=== PATIENT | male | born 1970 | race Caucasian/White ===

== ENCOUNTER 2020-05-28 15:39 | Inpatient (IN) | payer OTHER, SELFPAY ==
[2020-05-28] VITALS (31 sets, daily range): BP systolic 151–184; BP diastolic 76–90; PULSE 57–69; RESP 12–24; TEMP 36.3–36.4; O2SAT 99–100; BMI 26.6; BMI 26.5
--- NOTE | ~2020-05-28 | MR_ITS ---
EXAMINATION: MR foot RT wo con DATE: 05/29/2020 13:01 INDICATION: Right foot diabetic ulcer. TECHNIQUE: Magnetic resonance imaging (MRI) of the right foot was performed without intravenous contr ast. Sequences included sagittal T1-weighted FSE and STIR FSE, long-axis PD-weighted FS FSE and PD-we ighted FSE, and short-axis PD-weighted FS FSE and T1-weighted FSE. COMPARISON: Right foot radiographs 05/28/2020, 09/11/2016 FINDINGS: There is an ulcer plantar to segment metatarsophalangeal joint. There is bone marrow edema involving fourth proximal phalanx with sparing of the head, consistent with osteomyelitis. There is a n old healed fracture deformity of second proximal phalanx. There is mild increased T2-weighted signa l intensity and normal T1-weighted signal intensity in head of second metatarsal, likely reactive ost eitis. Lisfranc ligament is intact. The flexor and extensor tendons are normal. There is mild tenosyn ovitis of the second digit flexors. There are small effusions of first and second metatarsophalangeal joints. There is a fluid collection between and dorsal to the first and second metatarsophalangeal j oints measuring 1.9 x 1.2 x 1.7 cm. There is widespread fatty atrophy of the musculature of varying d egrees. There is widespread increased T2-weighted signal intensity in the musculature, consistent wit h subacute on chronic aeration. There is dorsal subcutaneous edema in the foot. IMPRESSION: 1. Osteomyelitis involving second proximal phalanx. 2. 1.9 x 1.2 x 1.7 cm fluid collection between and dorsal to the first and second metatarsophalangeal joints, consistent with abscess. 3. Mild tenosynovitis of the second digit flexors. 4. Small effusions of first and second metatarsophalangeal joints. Reviewed, dictated and finalized at location A. IMPRESSION: 1. Osteomyelitis involving second proximal phalanx. 2. 1.9 x 1.2 x 1.7 cm fluid collection between and dorsal to the first and seco nd metatarsophalangeal joints, consistent with abscess. 3. Mild tenosynovitis of the second digit flexors. 4. Small effusions of first and second metatarsophalangeal joints.
--- NOTE | ~2020-05-28 | US_ITS ---
EXAMINATION: US renal BI EXAM DATE: 05/29/2020 13:49 INDICATION: Chronic renal failure. TECHNIQUE: Multiple grayscale and Doppler images of the kidneys were obtained (by a technologist who performed the scan) and subsequently reviewed. There is no prior study for comparison. FINDINGS: Right kidney: There is normal contour and increased echogenicity. It measures 9.0 x 4.7 x 4.5 centim eters. There are no focal renal lesions identified. There is no hydronephrosis. Left kidney: There is normal contour and increased echogenicity. It measures 11.1 x 5.7 x 4.5 centim eters. There are no focal renal lesions identified. There is no hydronephrosis. Bladder unremarkable. Bilateral ureteral jets were confirmed. IMPRESSION: 1. Echogenic kidneys, medical renal disease. 2. No hydronephrosis. Reviewed, dictated and finalized at location A.
--- NOTE | ~2020-05-28 | XR_ITS ---
EXAMINATION: XR foot RT min 3V DATE: 05/28/2020 INDICATION: Right foot pain, diabetic foot ulcer at the plantar aspect of the foot TECHNIQUE: Dorsoplantar, lateral, and 2 oblique views of the right foot were obtained. COMPARISON: 09/11/2016 FINDINGS: There is soft tissue swelling near the distal metatarsals. There appears to be an ulceratio n at the plantar aspect of the foot near the metatarsophalangeal joints. No fracture is identified. B one alignment is normal. There is mild osteoarthritis of the foot. IMPRESSION: 1. Soft tissue swelling and likely plantar ulceration of the distal foot. No acute osseous findings. Reviewed, dictated and finalized at location A. IMPRESSION: 1. Soft tissue swelling and likely plantar ulceration of the distal foot. No ac carlos osseous findings.
[2020-05-28 16:30] LABS: Basophils Absolute Auto 0.1 K/mm3 (0.0-0.1); Basophils Percent Auto 0.3 % (0.2-1.2); Eosinophils Absolute Auto 0.3 K/mm3 (0-0.3); Eosinophils Percent Auto 1.6 % (0-4.4); Hematocrit 38.6 % (42.0-52.0); Hemoglobin 12.6 g/dL (14.0-18.0); Immature Granulocyte Absolute 0.08 K/mm3 (0.00-0.031); Immature Granulocyte Percent A 0.5 % (0-0.5); Lymphocytes Absolute Auto 1.03 K/mm3 (0.9-3.2); Lymphocytes Percent Auto 6.3 % (18.3-44.2); Mean Corpuscular HGB Conc 32.6 g/dl (32-36); Mean Corpuscular Hemoglobin 29.6 pg (26-34); Mean Corpuscular Volume 90.6 fl (80-100); Mean Platelet Volume 9.9 fl (7.4-10.4); Monocytes Absolute Auto 1.4 K/mm3 (0.1-0.6); Monocytes Percent Auto 8.8 % (2.6-8.5); Neutrophils Absolute Auto 13.6 K/mm3 (1.3-6.7); Neutrophils Percent Auto 82.5 % (45.5-73.1); Platelet Count Result 222 k/mm3 (150-375); Red Blood Count 4.26 M/mm3 (4.6-6.20); Red Cell Distribution Width 13.4 % (11.5-14.5); White Blood Count 16.4 K/mm3 (4.5-10.0)
[2020-05-28 16:40] LABS: Lactic Acid Reflex 0.7 mmol/L (0.7-2.1)
[2020-05-28 16:41] LABS: Anion Gap 7 mmol/L (8-16); Blood Urea Nitrogen 36 mg/dL (9-20); Calcium 8.3 mg/dL (8.4-10.2); Carbon Dioxide 18 mmol/L (22-30); Chloride 112 mmol/L (98-107); Estimated CRCL calculation 33 ml/min; Estimated Glomerular Filt Rate 23; Glucose 78 mg/dL (75-110); Potassium 5.4 mmol/L (3.4-5.0); Sodium 137 mmol/L (137-145)
--- NOTE | 2020-05-28 16:52 | ED.WOUNDLAC ---
HPI - Wound/Laceration General Chief Complaint: Wound/Laceration Stated Complaint: wound to foot Time Seen by Provider: 05/28/20 15:55 Source: patient Mode of arrival: ambulatory Limitations: no limitations History of Present Illness HPI narrative: Patient is a 50-year-old male complaining of a wound on his right foot, states that he has a chronic wound on that foot that is being followed by wound care, had it for years , but the past 2 days noticed some increased redness and swelling in the area. Patient denies any calf pain or tenderness. Patient denies any fever or chills. Patient denies any chest pain or shortness of breath. Related Data Home Medications Medication Instructions Recorded Confirmed acetaminophen 325 mg PO ONCE 05/28/20 albuterol mcg INHALATION 05/28/20 ascorbic acid (vitamin C) [Vitamin 500 mg PO BID 05/28/20 C] calcium carbonate [Tums E-X] 300 mg PO TID 05/28/20 cetirizine 10 mg PO DAILY 05/28/20 cholecalciferol (vitamin D3) 50 mcg PO DAILY 05/28/20 [Vitamin D3] citalopram 10 mg PO DAILY 05/28/20 docusate sodium 100 mg PO BID 05/28/20 famotidine 20 mg PO DAILY 05/28/20 fluticasone propionate 1 spray INTRANASAL Q12H 05/28/20 insulin glargine [Basaglar KwikPen 30 unit SUBCUT QAM 05/28/20 U-100 Insulin] insulin lispro [Humalog KwikPen 1 unit SUBCUT ONCE 05/28/20 Insulin] lactulose [Enulose] 20 g PO QID 05/28/20 [id number] [Creon] 1 cap PO TID 05/28/20 lisinopril 5 mg PO DAILY 05/28/20 melatonin 10 mg PO HS PRN 05/28/20 metoprolol tartrate 50 mg PO Q12H 05/28/20 multivitamin [Daily-Precious] 1 tablet PO DAILY 05/28/20 nitroglycerin [Nitrostat] 0.4 mg SUBLINGUAL Q5-15M PRN 05/28/20 polyethylene glycol 3350 [Miralax] 17 g PO DAILY 05/28/20 sodium chloride 1,000 mg PO DAILY 05/28/20 spironolactone 25 mg PO DAILY 05/28/20 thiamine HCl (vitamin B1) 100 mg PO DAILY 05/28/20 trazodone 100 mg PO HS PRN 05/28/20 Allergies Allergy/AdvReac Type Severity Reaction Status Date / Time No Known Allergies Allergy Verified 05/28/20 15:45 Review of Systems Review of Systems: All systems reviewed & are unremarkable except as noted in HPI and below Constitutional: Constitutional: Denies body ache(s), Denies chills, Denies excessive sweating, Denies fatigue, Denies fever(s), Denies headache(s), Denies lethargy, Denies malaise, Denies weakness and Denies weight loss Eyes: Eyes: Denies blurry vision, Denies change in vision and Denies loss of vision ENT: Denies dizziness, Denies ear discharge, Denies headache(s), Denies lip swelling, Denies epistaxis, Denies nasal congestion, Denies neck pain, Denies throat swelling and Denies tongue swelling Cardiovascular: Cardiovascular: Denies chest pain, Denies chest pain at rest, Denies chest pain with activity, Denies diaphoresis, Denies rapid heart rate, Denies edema, Denies irregular heart rhythm, Denies lightheadedness, Denies palpitations, Denies dyspnea and Denies dyspnea on exertion Respiratory: Respiratory: Denies chest congestion, Denies cough, Denies hemoptysis, Denies dyspnea and Denies dyspnea on exertion Gastrointestinal: Gastrointestinal: Denies abdominal pain, Denies melena, Denies hematochezia, Denies diarrhea, Denies nausea, Denies vomiting and Denies hematemesis Musculoskeletal: Musculoskeletal: Denies abnormal gait, Denies deformity, Denies joint swelling, Denies limited range of motion, Denies neck pain and Denies numbness Neurologic: Denies Abnormal speech present, Denies abnormal gait, Denies confusion, Denies dizziness, Denies headache(s), Denies focal weakness, Denies loss of vision, Denies numbness, Denies Other visual disturbances, Denies Sensory deficit (Neuro) and Denies weakness Psychiatric: Psychiatric: Denies confusion, Denies depression, Denies auditory hallucinations, Denies homicidal ideation and Denies suicidal ideation Endocrine: Endocrine: Denies cold intolerance, Denies excessive sweating, Denies fatigue, De
[2020-05-28] MEDS: LACTATED RINGERS 1,000 ML 999 ML IV CONT (17:10)
--- NOTE | 2020-05-28 21:01 | ADMGEN ---
This patient, Ravi Vásquez, was admitted to [facility] Surg Room 309-01. Patient/family oriented to hospital policies and general routines including ID bracelet, bed and alarms, visiting hours, pain management, procedures, bathroom and other care routines, personal items, smoking policy, room service/diet, and visiting hours. Information on how to activate the Rapid Response Team has been discussed. Patient/Family are encouraged to report perceived risks to care and to ask questions if they do not understand what they are told or what they should do.
--- NOTE | 2020-05-28 21:58 | PM.IMHP ---
H&P: HPI History of Present Illness Date/Time: 05/28/20 21:58 this is a 50-year-old male patient who is from [facility]. The patient has a history of insulin-dependent diabetes. The patient stated that his blood sugars are typically anywhere between 1-300. The patient does not know when his last A1c was. The patient stated that he has had a chronic wound ulcer to that right foot on and off for years. The patient states that he sees a senior capital markets specialist at the senior care on Mondays and they have debrided in the past. However he recently noticed that he has a strong odor from that foot. He has severe neuropathy due to the diabetes as well. And swelling. He is having some discomfort to the right foot. He has a dressing was some au colored drainage. ER started Zosyn and given a L of lactated Ringer's. Patient has leukocytosis with a white count of 16.4. If his potassium was noted to be 5.4 creatinine 2.9. The patient is afebrile at this time. The patient is being admitted to inpatient services on the date of service of 05/28/2020. Chief Complaint: Right foot sore Review of Systems Review of Systems: All systems reviewed & are unremarkable except as noted in HPI and below Constitutional: Constitutional: Reports as per HPI and Reports no additional constitutional complaints Eyes: Eyes: Reports as per HPI and Reports no additional eye complaints ENT: Reports system reviewed and no additional complaints, except as documented and Reports Normal hearing present Cardiovascular: Cardiovascular: Reports no additional cardiovascular complaints Respiratory: Respiratory: Reports no additional respiratory complaints and Reports no additional respiratory complaints Gastrointestinal: Gastrointestinal: Reports as per HPI and Reports no additional gastrointestinal complaints Musculoskeletal: Musculoskeletal: Reports no additional musculoskeletal complaints Integumentary/Breasts: Skin/Breast: Reports system reviewed and no additional complaints, except as docu and Reports as per HPI Neurologic: Reports system reviewed and no additional complaints, except as documented, Reports as per HPI and Reports Normal hearing present Psychiatric: Psychiatric: Reports no additional psychiatric complaints and Reports as per HPI Endocrine: Endocrine: Reports no additional endocrine complaints Hematologic/Lymphatic: Hematologic/Lymphatic: Reports no additional hematologic/lymphatic complaints Allergic/Immunologic: Allergic/Immunologic: Reports no additional allergic/immunologic complaints [facility] Past Medical History Medical History (Updated 05/28/20 @ 22:06 by Mercedes Richard NP) Chronic diabetic ulcer of right foot determined by examination Chronic pancreatitis Depression with anxiety Diabetic neuropathy Environmental allergies History of alcoholism Hypertension Insulin dependent diabetes mellitus S/P ORIF (open reduction internal fixation) fracture Left elbow Surgical History Surgical History (Updated 05/28/20 @ 22:06 by Mercedes Richard NP) History of surgery on arm Left elbow Family History Family History (Updated 05/28/20 @ 22:07 by Mercedes Richard NP) Mother Breast cancer Father Cancer Social History Social History (Updated 05/28/20 @ 22:08 by Mercedes Richard NP) Social History: The patient tells me that he used to drink heavily and has a history of alcoholism. The patient is single does not have any children. He does not have a durable power commercial attorney for healthcare. The patient is a full code. The patient resides at [facility]. The patient is disabled. The patient continues to smoke a half pack a cigarettes a day. Patient stated he smoked marijuana as a teenager but has not smoked since. He does not use any illicit drugs. The patient has no children. Smoking packs per day: 0.5 Smoking cigarettes per day: 10.0 Smoking status: Current every day smoker
[2020-05-28 22:44] LABS: Glucose Point of Care 69 (65-105)
[2020-05-28] MEDS: hydrALAZINE HCL 20 MG/ML VIAL 10 MG IV PUSH (23:10)
[2020-05-28 23:31] LABS: Anion Gap 6 mmol/L (8-16); Blood Urea Nitrogen 35 mg/dL (9-20); Calcium 8.3 mg/dL (8.4-10.2); Carbon Dioxide 19 mmol/L (22-30); Chloride 110 mmol/L (98-107); Estimated CRCL calculation 32 ml/min; Estimated Glomerular Filt Rate 22; Glucose 138 mg/dL (75-110); Sodium 135 mmol/L (137-145)
[2020-05-29 06:00] VITALS: BP 175/85; PULSE 84; RESP 18; TEMP 37.2; O2SAT 97
[2020-05-29] MEDS: hydrALAZINE HCL 20 MG/ML VIAL 10 MG IV PUSH (06:22)
[2020-05-29 06:30] LABS: Basophils Absolute Auto 0.1 K/mm3 (0.0-0.1); Basophils Percent Auto 0.3 % (0.2-1.2); Eosinophils Absolute Auto 0.3 K/mm3 (0-0.3); Eosinophils Percent Auto 1.9 % (0-4.4); Hematocrit 35.2 % (42.0-52.0); Hemoglobin 11.6 g/dL (14.0-18.0); Immature Granulocyte Absolute 0.08 K/mm3 (0.00-0.031); Immature Granulocyte Percent A 0.5 % (0-0.5); Lymphocytes Absolute Auto 1.31 K/mm3 (0.9-3.2); Lymphocytes Percent Auto 8.6 % (18.3-44.2); Mean Corpuscular Hemoglobin 29.2 pg (26-34); Mean Corpuscular Volume 88.7 fl (80-100); Mean Platelet Volume 10.5 fl (7.4-10.4); Monocytes Absolute Auto 1.3 K/mm3 (0.1-0.6); Monocytes Percent Auto 8.6 % (2.6-8.5); Neutrophils Absolute Auto 12.2 K/mm3 (1.3-6.7); Neutrophils Percent Auto 80.1 % (45.5-73.1); Platelet Count Result 214 k/mm3 (150-375); Red Blood Count 3.97 M/mm3 (4.6-6.20); Red Cell Distribution Width 13.1 % (11.5-14.5); White Blood Count 15.3 K/mm3 (4.5-10.0)
[2020-05-29 06:45] LABS: Lactate Dehydrogenase 267 U/L (313-618); Magnesium 1.3 mg/dL (1.6-2.3)
[2020-05-29 06:48] LABS: Lipase < 10 U/L (23-300)
[2020-05-29 07:54] LABS: Glucose Point of Care 169 (65-105)
[2020-05-29] MEDS: LACTULOSE 20 GM/30 ML UDC PO ×4 (08:12→21:03)
[2020-05-29] MEDS: LIPASE/AMYLASE/PROTEASE 12,000 UNITS CAP 3 CAP PO ×3 (08:12→17:04)
[2020-05-29 08:13] VITALS: PULSE 86
[2020-05-29] MEDS: CHOLECALCIFEROL 1,000 UNITS TABLET 2000 UNITS PO (08:13)
[2020-05-29] MEDS: ASCORBIC ACID 500 MG TABLET PO ×2 (08:13→17:05)
[2020-05-29] MEDS: METOPROLOL TARTRATE 50 MG TAB PO ×2 (08:13→21:03)
[2020-05-29] MEDS: FAMOTIDINE 20 MG TABLET PO (08:15)
[2020-05-29] MEDS: LORATADINE 10 MG TABLET PO (08:15)
[2020-05-29] MEDS: SPIRONOLACTONE 25 MG TABLET PO (08:15)
[2020-05-29] MEDS: MULTIVITAMINS THERAPEUTIC TAB (*BKC) 1 TABLET PO (08:15)
[2020-05-29] MEDS: SODIUM CHLORIDE 1 GM TABLET PO (08:15)
[2020-05-29] MEDS: lisinopriL 5 MG TABLET PO (08:15)
[2020-05-29] MEDS: THIAMINE HCL 100 MG TABLET PO (08:15)
[2020-05-29] MEDS: INSULIN GLARGINE (*BKC) 100 UNITS/ML 30 UNITS SUB-Q (08:46)
[2020-05-29] MEDS: ACETAMINOPHEN 325 MG TABLET 650 MG PO ×2 (08:47→21:09)
--- NOTE | 2020-05-29 09:00 | PM.CNOR ---
Assessment and Plan Assessment and plan (1) Diabetic infection of right foot: Code(s): E11.628 - Type 2 diabetes mellitus with other skin complications; L08.9 - Local infection of the skin and subcutaneous tissue, unspecified Status: Acute Assessment and Plan: Orthopedic consult requested for this 50-year-old male with a history of a right plantar diabetic foot ulcer with recent worsening. Per patient, the ulcer is been present for approximately 2 years and he has been followed by a supervisor sewer maintenance at [facility]. He has resided at [facility] for the last 8 years per patient report. He does have chronic diabetes and neuropathy. He does not wear custom orthotics or depth shoes. History, exam and radiographs reviewed with the patient today. Radiographs of the right foot reveal no evidence of acute osteomyelitis. Ulcer on the plantar aspect of the 2nd MTP joint with 2 cm in depth. Inability to probe to bone. Concern for tracking to the dorsal foot through the 1st interspace with notable redness, warmth and swelling on the dorsal aspect of the forefoot of the right foot. Foul odor noted as well as purulent drainage. Recommend MRI of the right foot at this time for further evaluation of suspected tracking. IV antibiotics. Close glycemic control. Elevate the right lower extremity. Protected weight-bearing on the heel. Postop shoe in the interim. Dry gauze dressing in place at this time. We will obtain Wound Care Nurse consult pending MRI results and decision for conservative vs. operative treatment. (2) Diabetic neuropathy: Qualifiers: Diabetes mellitus complication detail: with other neurological complication Diabetes mellitus type: type 2 Qualified Code(s): E11.49 - Type 2 diabetes mellitus with other diabetic neurological complication Code(s): E11.40 - Type 2 diabetes mellitus with diabetic neuropathy, unspecified Status: Chronic Assessment and Plan: This document was completed by using [employer] Fluency Direct speech recognition software, therefore electron tube assembler variances may occur. Despite proofreading, typographical errors may also occur. History of Present Illness HPI Consult date: 05/29/20 Requesting physician: Mercedes Richard NP Consult reason: other (Right DFU ) Chief complaint: Diabetic foot ulcer infection Narrative: 48-year-old male admitted from [facility] due to increasing redness, warmth and swelling to the right foot. Patient has a chronic right diabetic foot ulcer on the plantar aspect of the right foot over the 2nd metatarsal head. He has been seeing a supervisor sewer maintenance at [facility] understand he rehab once or twice a month. He has had intermittent debridement of that foot as well. Patient reports situations in the past where he has been nonweightbearing to the right lower extremity and his wound heals and then reoccurs as soon as he begins to bear weight. He does not wear custom orthotics or depth shoes. The patient is diabetic and has chronic neuropathy to bilateral feet. He noticed an increase of redness, warmth and swelling as well as a foul odor which prompted his arrival to the emergency room for further evaluation. He denies recent fever, chills, night sweats, nausea, vomiting or diarrhea. He reports well-maintained blood glucose levels. Orthopedic consult requested by the hospitalist service. Review of Systems Constitutional: Constitutional: Reports no additional constitutional complaints, Denies excessive sweating, Denies fever(s) and Denies weight gain Eyes: Eyes: Reports no additional eye complaints and Denies change in vision ENT: Reports system reviewed and no additional complaints, except as documented and Reports Normal hearing present Cardiovascular: Cardiovascular: Denies chest pain, Denies diaphoresis, Denies leg ulcers and Denies dyspnea on exertion Respiratory:
[2020-05-29 09:30] VITALS: O2SAT 97
[2020-05-29] MEDS: CALCIUM CARBONATE (TUMS) 500 MG (200 MG ELEMENTAL) 300 MG PO ×2 (09:59→16:57)
[2020-05-29] MEDS: CITALOPRAM HYDROBROMIDE 10 MG TABLET PO (09:59)
[2020-05-29] MEDS: DOCUSATE SODIUM 100 MG CAPSULE PO ×2 (10:00→17:10)
--- NOTE | 2020-05-29 10:50 | PM.IMPN ---
Progress Note: A&P Assessment and Plan (1) Diabetic infection of right foot: Code(s): E11.628 - Type 2 diabetes mellitus with other skin complications; L08.9 - Local infection of the skin and subcutaneous tissue, unspecified Status: Acute Assessment and Plan: He states he gets wound services in his [facility]. The x-ray of the foot shows soft tissue swelling and likely plantar ulceration in the distal foot. Blood and wound cultures have been pending. pt is on iv primaxin and iv vancomycin. pt seen by orthopedic team. Mri foot recommended, wound team consulted. (2) Insulin dependent diabetes mellitus: Status: Chronic Assessment and Plan: Accu-Cheks AC and HS with sliding scale insulin. Check A1c. (3) Depression with anxiety: Code(s): F41.8 - Other specified anxiety disorders Status: Chronic Assessment and Plan: Continue with Celexa. (4) Hypertension: Code(s): I10 - Essential (primary) hypertension Status: Chronic Assessment and Plan: restart bp medications (5) Chronic pancreatitis: Code(s): K86.1 - Other chronic pancreatitis Status: Chronic Assessment and Plan: Patient is on Creon will continue with that. (6) Diabetic neuropathy: Qualifiers: Diabetes mellitus type: type 2 Diabetes mellitus complication detail: with other neurological complication Qualified Code(s): E11.49 - Type 2 diabetes mellitus with other diabetic neurological complication Code(s): E11.40 - Type 2 diabetes mellitus with diabetic neuropathy, unspecified Status: Chronic Assessment and Plan: Continue with home medications. (7) Acute hyperkalemia: Code(s): E87.5 - Hyperkalemia Status: Resolved Assessment and Plan: continue to monitor Subjective Date/time seen: 05/29/20 10:50 Interval history: 50-year-old male patient who is from [facility]. The patient has a history of insulin-dependent diabetes. Pt is here for DM R foot infection has seen orthopedics and is on iv primaxin and vancomycin Review of Systems Review of Systems: All systems reviewed & are unremarkable except as noted in HPI and below Exam Narrative: Exam Narrative: Younger man Chest: Chest palpation & inspection: normal inspection of the chest Resp: Effort & Inspection: normal respiratory effort Auscultation: clear to auscultation bilaterally Percussion: percussion normal Cardio: Palpation: normal PMI Rate: regular rate Rhythm: regular rhythm Heart sounds: S1 normal heart sound present and S2 normal heart sound present Peripheral pulses: Peripheral pulses 2+ throughout GI: Inspection: normal to inspection Auscultation: normal bowel sounds Extrem: General: normal to inspection Right upper extremity: normal to inspection Left upper extremity: normal to inspection Left lower extremity: normal to inspection Other: Dressing to R foot Psych: Appearance: grossly normal Mental Status: mental status grossly normal Speech and movement: Normal speech and movement present Affect: normal affect Attitude: cooperative Thought process: Normal thought process present Insight: Good insight present (Psych) Judgement: Good judgement present (Psych) Objective Data Vital Signs Vital Signs: Vital Signs - 24 hr 05/28/20 15:38 05/28/20 15:47 05/28/20 16:01 Temperature 36.4 C Pulse Rate 69 68 65 Respiratory Rate 17 15 17 Blood Pressure 182/87 H 162/81 H Pulse Oximetry 100 100 99 05/28/20 16:02 05/28/20 16:15 05/28/20 16:16 Temperature Pulse Rate 66 63 64 Respiratory Rate 20 19 19 Blood Pressure 157/78 H Pulse Oximetry 99 99 100 05/28/20 16:28 05/28/20 16:30 05/28/20 16:31 Temperature Pulse Rate 62 62 62 Respiratory Rate 17 19 19 Blood Pressure 157/78 H 151/76 H Pulse Oximetry 100 99 100 05/28/20 16:45 05/28/20 16:46 05/28/20 17:00 Temperature Pulse Rate 64 64 61 Respiratory Rate 12
--- NOTE | 2020-05-29 12:21 | PC.NURSE ---
Patient went down for MRI of RT Foot
--- NOTE | 2020-05-29 13:23 | PC.NURSE ---
Return from MRI at 1320
[2020-05-29] MEDS: INSULIN ASPART (*BKC) 100 UNITS/ML SUB-Q ×2 (13:41→17:48)
[2020-05-29 13:43] LABS: Glucose Point of Care 275 (65-105)
[2020-05-29 14:00] VITALS: BP 181/91; PULSE 67; RESP 18; TEMP 36.4; O2SAT 100
[2020-05-29 17:33] LABS: Glucose Point of Care 333 (65-105)
[2020-05-29 21:03] VITALS: PULSE 75
[2020-05-29] MEDS: MELATONIN 5 MG TABLET 10 MG PO (21:10)
[2020-05-29 22:00] VITALS: BP 187/94; PULSE 75; RESP 18; TEMP 37.3; O2SAT 97
[2020-05-29] MEDS: INSULIN ASPART (*BKC) 100 UNITS/ML 8 UNITS SUB-Q (23:04)
[2020-05-30] VITALS (17 sets, daily range): BP systolic 102–184; BP diastolic 56–87; PULSE 60–88; RESP 14–20; TEMP 36.2–37.2; O2SAT 97–100
[2020-05-30] MEDS: hydrALAZINE HCL 20 MG/ML VIAL 10 MG IV PUSH ×2 (02:46→13:11)
[2020-05-30 04:37] LABS: Glucose Point of Care 308 (65-105)
[2020-05-30 05:26] LABS: Glucose Point of Care 166 (65-105)
[2020-05-30] MEDS: ACETAMINOPHEN 325 MG TABLET 650 MG PO ×3 (06:03→20:15)
[2020-05-30] MEDS: LABETALOL HCL INJ 100 MG/20 ML VIAL 10 MG IV PUSH (06:03)
--- NOTE | 2020-05-30 06:38 | PC.NURSE ---
PAULETTE Richard notified that the patient is having consistent high bp with the morning one being greater then 160 and unable to receive the hydralazine yet. Order Labetalol 10mg IV once.
[2020-05-30 08:20] LABS: Anion Gap 10 mmol/L (8-16); Blood Urea Nitrogen 36 mg/dL (9-20); Calcium 8.7 mg/dL (8.4-10.2); Carbon Dioxide 13 mmol/L (22-30); Chloride 110 mmol/L (98-107); Estimated CRCL calculation 32 ml/min; Estimated Glomerular Filt Rate 22; Glucose 222 mg/dL (75-110); Potassium 5.2 mmol/L (3.4-5.0); Sodium 133 mmol/L (137-145)
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
--- NOTE | 2020-05-30 08:23 | WPDHPUPDATE1 ---
History and Physical Update Update Date/Time: 05/30/20 08:23 History and Physical has been reviewed, including an updated exam of the patient. There are NO changes in the patient's condition. Risks, benefits, and alternatives have been discussed and questions answered. Patient agrees to proceed with procedure.
[2020-05-30 08:44] LABS: Basophils Absolute Auto 0.1 K/mm3 (0.0-0.1); Basophils Percent Auto 0.4 % (0.2-1.2); Eosinophils Absolute Auto 0.5 K/mm3 (0-0.3); Eosinophils Percent Auto 3.7 % (0-4.4); Hematocrit 37.4 % (42.0-52.0); Hemoglobin 12.6 g/dL (14.0-18.0); Immature Granulocyte Absolute 0.07 K/mm3 (0.00-0.031); Immature Granulocyte Percent A 0.5 % (0-0.5); Lymphocytes Absolute Auto 1.13 K/mm3 (0.9-3.2); Lymphocytes Percent Auto 8.3 % (18.3-44.2); Mean Corpuscular HGB Conc 33.7 g/dl (32-36); Mean Corpuscular Hemoglobin 30.1 pg (26-34); Mean Corpuscular Volume 89.5 fl (80-100); Mean Platelet Volume 10.4 fl (7.4-10.4); Monocytes Percent Auto 7.4 % (2.6-8.5); Neutrophils Absolute Auto 10.9 K/mm3 (1.3-6.7); Neutrophils Percent Auto 79.7 % (45.5-73.1); Platelet Count Result 237 k/mm3 (150-375); Red Blood Count 4.18 M/mm3 (4.6-6.20); Red Cell Distribution Width 13.4 % (11.5-14.5); White Blood Count 13.7 K/mm3 (4.5-10.0)
[2020-05-30 09:00] LABS: Magnesium 1.5 mg/dL (1.6-2.3)
[2020-05-30 09:00] LABS: Glucose Point of Care 211 (65-105)
[2020-05-30] MEDS: LIPASE/AMYLASE/PROTEASE 12,000 UNITS CAP 3 CAP PO ×2 (09:17→17:39)
[2020-05-30] MEDS: FAMOTIDINE 20 MG TABLET PO (09:17)
[2020-05-30] MEDS: MAGNESIUM SULFATE 3GM/D5W100ML 3 GM/100 ML BAG IVPB (09:17)
[2020-05-30] MEDS: SODIUM CHLORIDE 1 GM TABLET PO (09:17)
[2020-05-30] MEDS: LORATADINE 10 MG TABLET PO (09:18)
[2020-05-30] MEDS: CHOLECALCIFEROL 1,000 UNITS TABLET 2000 UNITS PO (09:18)
[2020-05-30] MEDS: SPIRONOLACTONE 25 MG TABLET PO (09:18)
[2020-05-30] MEDS: ASCORBIC ACID 500 MG TABLET PO ×2 (09:18→17:39)
[2020-05-30] MEDS: lisinopriL 5 MG TABLET PO (09:18)
[2020-05-30] MEDS: METOPROLOL TARTRATE 50 MG TAB PO ×2 (09:18→20:15)
[2020-05-30] MEDS: CITALOPRAM HYDROBROMIDE 10 MG TABLET PO (09:18)
[2020-05-30] MEDS: THIAMINE HCL 100 MG TABLET PO (09:18)
[2020-05-30] MEDS: LACTULOSE 20 GM/30 ML UDC PO ×3 (09:21→20:15)
[2020-05-30] MEDS: MULTIVITAMINS THERAPEUTIC TAB (*BKC) 1 TABLET PO (09:21)
[2020-05-30] MEDS: CALCIUM CARBONATE (TUMS) 500 MG (200 MG ELEMENTAL) 300 MG PO ×2 (09:23→17:37)
[2020-05-30 12:15] LABS: Glucose Point of Care 268 (65-105)
[2020-05-30] MEDS: LACTATED RINGERS 1,000 ML 30 ML IV CONT (14:10)
--- NOTE | 2020-05-30 14:34 | PC.NURSE ---
Patient down to pre-op at 1400.
--- NOTE | 2020-05-30 14:51 | WPDANESEPPF ---
Anes - Initial Pre Proc Eval Procedure: Operation Date: 05/30/20 15:00 Proposed Procedures p Incision and Drainage Right Diabetic Foot Ulcer, Excision Osteomylitis - Ishmael Marie MD Date/Time: 05/30/20 14:51 Surgeon: Paige Camp PA-C Pre Op Diagnosis: Diabetic foot ulcer infection Patient Data Age: 50 Gender: M Height: 6 ft 3 in Weight: 96.4 kg Last Vital Signs Temp 36.2 C L 05/30/20 06:00 Pulse 88 05/30/20 09:18 Resp 20 05/30/20 08:00 BP 169/67 H 05/30/20 06:00 Pulse Ox 97 05/30/20 08:00 Allergies Allergy/AdvReac Type Severity Reaction Status Date / Time No Known Allergies Allergy Verified 05/28/20 15:45 Home Medications Medication Instructions Recorded Confirmed Type acetaminophen 325 mg PO ONCE 05/28/20 05/28/20 History ascorbic acid (vitamin C) [Vitamin 500 mg PO BID 05/28/20 05/28/20 History C] calcium carbonate [Tums E-X] 300 mg PO TID 05/28/20 05/28/20 History cetirizine 10 mg PO DAILY 05/28/20 05/28/20 History cholecalciferol (vitamin D3) 50 mcg PO DAILY 05/28/20 05/28/20 History [Vitamin D3] citalopram 10 mg PO DAILY 05/28/20 05/28/20 History docusate sodium 100 mg PO BID 05/28/20 05/28/20 History famotidine 20 mg PO DAILY 05/28/20 05/28/20 History fluticasone propionate 1 spray INTRANASAL Q12H PRN 05/28/20 05/28/20 History insulin glargine [Basaglar KwikPen 30 unit SUBCUT QAM 05/28/20 05/28/20 History U-100 Insulin] insulin lispro [Humalog KwikPen See Rx Instructions .ROUTE .COMPLEX 05/28/20 05/28/20 History Insulin] lactulose [Enulose] 20 g PO QID 05/28/20 05/28/20 History wzessx-rxcqimpi-wzmbiue [Creon] 1 cap PO TID 05/28/20 05/28/20 History lisinopril 5 mg PO DAILY 05/28/20 05/28/20 History melatonin 10 mg PO HS PRN 05/28/20 05/28/20 History metoprolol tartrate 50 mg PO Q12H 05/28/20 05/28/20 History multivitamin [Daily-Precious] 1 tablet PO DAILY 05/28/20 05/28/20 History nitroglycerin [Nitrostat] 0.4 mg SUBLINGUAL Q5-15M PRN 05/28/20 05/28/20 History polyethylene glycol 3350 [Miralax] 17 g PO PRN 05/28/20 05/28/20 History sodium chloride 1,000 mg PO DAILY 05/28/20 05/28/20 History spironolactone 25 mg PO DAILY 05/28/20 05/28/20 History thiamine HCl (vitamin B1) 100 mg PO DAILY 05/28/20 05/28/20 History trazodone 100 mg PO HS PRN 05/28/20 05/28/20 History Laboratory Tests 05/29/20 05/29/20 05/30/20 17:23 21:01 05:14 WBC RBC Hgb Hct MCV MCH MCHC RDW Plt Count MPV Immature Gran % (Auto) Neut % (Auto) Lymph % (Auto) [place] % (Auto) Eos % (Auto) Baso % (Auto) Lymph # (Auto) [place] # (Auto) Eos # (Auto) Baso # (Auto) Abs Immat Gran (auto) Absolute Neuts (auto) Absolute Nucleated RBC Nucleated RBC % Sodium Potassium Chloride Carbon Dioxide Anion Gap BUN Creatinine Estim Creat Clear Calc Estimated GFR Glucose POC Capillary Glucose 333 mg/dl H mg/dl 308 mg/dl H mg/dl 166 mg/dl H mg/dl (65-105) (65-105) (65-105) Calcium Magnesium 05/30/20 05/30/20 05/30/20 07:54 07:54 07:54 WBC 13.7 K/mm3 H K/mm3 (4.5-10.0) RBC 4.18 M/mm3 L M/mm3 (4.6-6.20) Hgb 12.6 g/dL L g/dL (14.0-18.0) Hct 37.4 % L % (42.0-52.0) MCV 89.5 fl fl (80-100) MCH 30.1 pg pg (26-34) MCHC 33.7 g/dl g/dl (32-36) RDW 13.4 % % (11.5-14.5) Plt Count 237 k/mm3 k/mm3 (150-375) MPV 10.4 fl fl (7.4-10.4) Immature Gran % (Auto) 0.5 % % (0-0.5) Neut % (Auto) 79.7 % H % (45.5-73.1) Lymph % (Auto) 8.3 % L
--- NOTE | 2020-05-30 14:58 | PM.IMPN ---
Progress Note: A&P Assessment and Plan (1) Osteomyelitis: Code(s): M86.9 - Osteomyelitis, unspecified Status: Acute Assessment and Plan: Patient lives at shelter for the last 8 years and gets his wound services there. He states on 05/26/20 the patient started having some increased redness, swelling, pain, foul odor inside to come to emergency room for further evaluation due in a non improving symptoms. Patient MRI of his foot which showed Osteomyelitis involving second proximal phalanx. 1.9 x 1.2 x 1.7 cm fluid collection between and dorsal to the first and second metatarsophalangeal joints, consistent with abscess. Mild tenosynovitis of the second digit flexors. Small effusions of first and second metatarsophalangeal joints. Patient is being taken to the OR for a debridement by orthopedic surgery today Wound culture is growing group B strep, but the patient does have a history of MRSA infection about 1 year ago he states Will continue treatment with IV Primaxin and vancomycin Recommendations per Orthopedic team greatly appreciated May need to consider infectious disease consultation for antibiotic recommendations closer to discharge Continue monitoring (2) Acute kidney injury superimposed on chronic kidney disease: Code(s): N17.9 - Acute kidney failure, unspecified; N18.9 - Chronic kidney disease, unspecified Status: Acute Assessment and Plan: Patient's baseline creatinine per his shelter is 2.3. He does see Dr. Simms bpm architect as an outpatient. Creatinine on arrival was 2.9, and today it was 3. This could be his baseline, if becomes worse then will consider getting Nephrology involved. Renal ultrasound Echogenic kidneys, medical renal disease. No hydronephrosis. Continue monitoring. (3) Diabetic infection of right foot: Code(s): E11.628 - Type 2 diabetes mellitus with other skin complications; L08.9 - Local infection of the skin and subcutaneous tissue, unspecified Status: Acute Assessment and Plan: See above (4) Insulin dependent diabetes mellitus: Status: Chronic Assessment and Plan: Hemoglobin A1c is. Well controlled. Will continue his regimen. Accu-Cheks AC and HS with sliding scale insulin. Hypoglycemic protocol in place (5) Depression with anxiety: Code(s): F41.8 - Other specified anxiety disorders Status: Chronic Assessment and Plan: Continue with Celexa. (6) Hypertension: Code(s): I10 - Essential (primary) hypertension Status: Chronic Assessment and Plan: Blood pressure this morning was elevated 169/67. Continue home medications and p.r.n. hydralazine. (7) Chronic pancreatitis: Code(s): K86.1 - Other chronic pancreatitis Status: Chronic Assessment and Plan: Patient is on Creon will continue with that. (8) Diabetic neuropathy: Qualifiers: Diabetes mellitus complication detail: with other neurological complication Diabetes mellitus type: type 2 Qualified Code(s): E11.49 - Type 2 diabetes mellitus with other diabetic neurological complication Code(s): E11.40 - Type 2 diabetes mellitus with diabetic neuropathy, unspecified Status: Chronic Assessment and Plan: Continue with home medications. (9) Acute hyperkalemia: Code(s): E87.5 - Hyperkalemia Status: Resolved Assessment and Plan: Potassium is elevated most likely due to his ZITA. 5.2 today, will continue monitoring. (10) Hypomagnesemia:
[2020-05-30 16:20] LABS: Glucose Point of Care 244 (65-105)
[2020-05-30] MEDS: INSULIN HUMAN REGULAR (*BKC) 100 UNITS/ML 6 UNITS SUB-Q (16:32)
--- NOTE | 2020-05-30 16:55 | PM.PROC ---
Procedure Note - Detailed Date of procedure: 05/30/20 Pre-op diagnosis: Diabetic foot ulcer infection Post-op diagnosis: same Procedure performed: excisional debridement right diabetic foot infection, debridement abscess, Excision exostosis Description of procedure: Indications: Patient is a 50-year-old gentleman with diabetes and peripheral neuropathy who was admitted with a right diabetic foot infection and plantar foot ulcer. MRI demonstrates abscess in the 1st webspace. He presents for operative treatment. What was done: Patient identified in the preoperative holding. Informed consent given. Operative extremity marked. Patient received intravenous antibiotics. Patient brought to the operating room where underwent general anesthetic by anesthesia team. Positioned supine on operating room table. Time-out performed confirming the patient, site of the surgery and the plan. Right foot prepped draped usual sterile surgical fashion using a Betadine prep solution. Ankle and leg exsanguinated and calf tourniquet inflated to 225 mmHg. Hip blade knife used to excise the thick skin and callus from the plantar aspect of the foot exposing a 1.5 x 1 cm ulcer which communicated with the 2nd metatarsal. Skin, subcutaneous tissue and muscle were debrided. Infected material was excised and passed off. Wound thoroughly irrigated and closed with 2 0 Prolene interrupted suture. Longitudinal incision made in the 1st webspace on the dorsum of the foot with a 15 blade knife. Approximately 2 cm abscess encountered deep to the fascia with purulent fluid. Fifteen blade knife used to excise subcutaneous tissue and muscle from the abscess that was infected. Dorsomedial capsulotomy performed of the 2nd metatarsophalangeal joint. The proximal phalanx and the metatarsal head or inspected and probed and no evidence of osteomyelitis. There was no evidence of infection in the joint. Retractors were placed and a rongeur was used to remove the plantar condyle from the 2nd metatarsal head. Wound thoroughly irrigated and skin loosely approximated with 2 0 Prolene interrupted suture. Sterile dressing applied. The patient was then woken from anesthesia, extubated and taken to the recovery room in stable condition. All sponge, needle, instrument counts were correct at the end of the case. Implants: none Anesthesia: GLMA Surgeon: Ishmael Marie MD Test Baker: 1st expanded duty dental assistant Estimated blood loss (mL): 2 Tourniquet time (min): 28 Drains: No Packing: No Pathology: none sent Complications: None Condition: stable Disposition: PACU Findings: subfascial abscess 1st webspace right foot with communication to the plantar ulcer. No evidence of septic arthritis, no evidence of osteomyelitis. 1.5 x 1 cm ulcer plantar foot
--- NOTE | 2020-05-30 17:30 | PC.NURSE ---
Patient returned to floor from post-op at 1715.
[2020-05-30 17:31] LABS: Glucose Point of Care 233 (65-105)
[2020-05-30] MEDS: INSULIN ASPART (*BKC) 100 UNITS/ML SUB-Q (17:36)
[2020-05-30] MEDS: MELATONIN 5 MG TABLET 10 MG PO (20:15)
[2020-05-30] MEDS: INSULIN ASPART (*BKC) 100 UNITS/ML 8 UNITS SUB-Q (21:08)
[2020-05-30 21:12] LABS: Glucose Point of Care 376 (65-105)
[2020-05-31] MEDS: hydrALAZINE HCL 20 MG/ML VIAL 10 MG IV PUSH (05:57)
[2020-05-31 06:00] VITALS: BP 181/77; PULSE 67; RESP 18; TEMP 36.3; O2SAT 100
[2020-05-31 06:19] LABS: Basophils Percent Auto 0.2 % (0.2-1.2); Eosinophils Percent Auto 0.1 % (0-4.4); Hematocrit 34.9 % (42.0-52.0); Hemoglobin 11.8 g/dL (14.0-18.0); Immature Granulocyte Absolute 0.11 K/mm3 (0.00-0.031); Immature Granulocyte Percent A 0.7 % (0-0.5); Lymphocytes Absolute Auto 0.77 K/mm3 (0.9-3.2); Lymphocytes Percent Auto 4.7 % (18.3-44.2); Mean Corpuscular HGB Conc 33.8 g/dl (32-36); Mean Corpuscular Hemoglobin 30.2 pg (26-34); Mean Corpuscular Volume 89.3 fl (80-100); Mean Platelet Volume 10.3 fl (7.4-10.4); Monocytes Absolute Auto 0.9 K/mm3 (0.1-0.6); Monocytes Percent Auto 5.6 % (2.6-8.5); Neutrophils Absolute Auto 14.5 K/mm3 (1.3-6.7); Neutrophils Percent Auto 88.7 % (45.5-73.1); Platelet Count Result 243 k/mm3 (150-375); Red Blood Count 3.91 M/mm3 (4.6-6.20); Red Cell Distribution Width 13.1 % (11.5-14.5); White Blood Count 16.4 K/mm3 (4.5-10.0)
[2020-05-31 06:24] LABS: Anion Gap 10 mmol/L (8-16); Blood Urea Nitrogen 37 mg/dL (9-20); Calcium 8.7 mg/dL (8.4-10.2); Carbon Dioxide 13 mmol/L (22-30); Chloride 104 mmol/L (98-107); Estimated CRCL calculation 34 ml/min; Estimated Glomerular Filt Rate 24; Glucose 367 mg/dL (75-110); Magnesium 1.8 mg/dL (1.6-2.3); Potassium 5.7 mmol/L (3.4-5.0); Sodium 127 mmol/L (137-145)
[2020-05-31 06:45] LABS: Burr Cells 1+ (NORMAL); Platelet Estimate Adequate (Adequate)
--- NOTE | 2020-05-31 07:13 | WPDANESPN ---
Anes - Prog Note Post-Op Date/Time: 05/31/20 07:13 Cardiovascular status: normal Respiratory status: normal Airway patency: baseline Mental status: baseline Post-Op hydration status: normal Vital Signs: Last Vital Signs Temp 36.3 C L 05/31/20 06:00 Pulse 67 05/31/20 06:00 Resp 18 05/31/20 06:00 BP 181/77 H 05/31/20 06:00 Pulse Ox 100 05/31/20 06:00 Pain Score (VAS): 0 I/O: Intake & Output 05/30/20 05/30/20 05/31/20 15:59 23:59 07:59 Intake Total 200 650 550 Output Total 375 1375 500 Balance -175 -725 50 Laboratory Tests 05/31/20 05:41 05/31/20 05:41 05/30/20 05/30/20 05/30/20 07:54 07:54 07:54 WBC 13.7 H RBC 4.18 L Hgb 12.6 L Hct 37.4 L MCV 89.5 MCH 30.1 MCHC 33.7 RDW 13.4 Plt Count 237 MPV 10.4 Immature Gran % (Auto) 0.5 Neut % (Auto) 79.7 H Lymph % (Auto) 8.3 L [place] % (Auto) 7.4 Eos % (Auto) 3.7 Baso % (Auto) 0.4 Lymph # (Auto) 1.13 [place] # (Auto) 1.0 H Eos # (Auto) 0.5 H Baso # (Auto) 0.1 Abs Immat Gran (auto) 0.07 H Absolute Neuts (auto) 10.9 H Absolute Nucleated RBC 0.0 Nucleated RBC % 0.0 Platelet Estimate [place] Cells Sodium 133 L Potassium 5.2 H Chloride 110 H Carbon Dioxide 13 L Anion Gap 10 BUN 36 H Creatinine 3.00 H Estim Creat Clear Calc 32 Estimated GFR 22 L Glucose 222 H POC Capillary Glucose Calcium 8.7 Magnesium 1.5 L SARS-CoV-2 RNA (RT-PCR) 05/30/20 05/30/20 05/30/20 08:57 12:13 16:13 WBC RBC Hgb Hct MCV MCH MCHC RDW Plt Count MPV Immature Gran % (Auto) Neut % (Auto) Lymph % (Auto) [place] % (Auto) Eos % (Auto) Baso % (Auto) Lymph # (Auto) [place] # (Auto) Eos # (Auto) Baso # (Auto) Abs Immat Gran (auto) Absolute Neuts (auto) Absolute Nucleated RBC Nucleated RBC % Platelet Estimate [place] Cells Sodium Potassium Chloride Carbon Dioxide Anion Gap BUN Creatinine Estim Creat Clear Calc Estimated GFR Glucose POC Capillary Glucose 211 H 268 H 244 H Calcium Magnesium SARS-CoV-2 RNA (RT-PCR) 05/30/20 05/30/20 05/31/20 17:21 20:13 05:24 WBC RBC Hgb Hct MCV MCH MCHC RDW Plt Count MPV Immature Gran % (Auto) Neut % (Auto) Lymph % (Auto) [place] % (Auto) Eos % (Auto) Baso % (Auto) Lymph # (Auto) [place] # (Auto) Eos # (Auto) Baso # (Auto) Abs Immat Gran (auto) Absolute Neuts (auto) Absolute Nucleated RBC Nucleated RBC % Platelet Estimate [place] Cells Sodium Potassium Chloride Carbon Dioxide Anion Gap BUN Creatinine Estim Creat Clear Calc Estimated GFR Glucose POC Capillary Glucose 233 H 376 H Calcium Magnesium SARS-CoV-2 RNA (RT-PCR) Pending 05/31/20 05/31/20 05:41 05:41 WBC 16.4 H RBC 3.91 L Hgb 11.8 L Hct 34.9 L MCV 89.3 MCH 30.2 MCHC 33.8 RDW 13.1 Plt Count 243 MPV 10.3 Immature Gran % (Auto) 0.7 H Neut % (Auto) 88.7 H Lymph % (Auto) 4.7 L [place] % (Auto) 5.6 Eos % (Auto) 0.1 Baso % (Auto) 0.2 Lymph # (Auto) 0.77 L [place] # (Auto) 0.9 H Eos # (Auto) 0.0 Baso # (Auto) 0.0 Abs Immat Gran (auto) 0.11 H Absolute Neuts (auto) 14.5 H Absolute Nucleated RBC 0.0 Nucleated RBC % 0.0 Platelet Estimate Adequate [place] Cells 1+ Sodium 127 L Potassium 5.7 H Chloride 104 Carbon Dioxide 13 L Anion Gap 10 BUN 37 H Creatinine 2.80 H Estim Creat Clear Calc 34 Estimated GFR 24 L Glucose 367 H POC Capillary Glucose Calcium 8.7 Magnesium 1.8 SARS-CoV-2 RNA (RT-PCR) Microbiology 05/28/20 17:18 Blood Blood Culture - Preliminary 05/28/20 17:11 Blood Blood Culture - Preliminary 05/29/20 00:52 Foot Right Wound Culture - Preliminary Group
[2020-05-31 07:54] LABS: Glucose Point of Care 346 (65-105)
--- NOTE | 2020-05-31 07:54 | PM.PNORT ---
Progress Note: A&P Assessment and Plan (1) Diabetic infection of right foot: Code(s): E11.628 - Type 2 diabetes mellitus with other skin complications; L08.9 - Local infection of the skin and subcutaneous tissue, unspecified Status: Acute Assessment and Plan: POD #1 RT foot debridement. Dressing change today. Partial weight bear with postop shoe. Appreciate PT/OT IV abx No further surgery planned. Subjective Subjective Date/Time Seen: 05/31/20 07:54 Post Op day: 1 Principal diagnosis: RT diabetic foot infection Interval history: Patient awake and alert. No new complaints. Wants to go back to MD Exam Const: General: cooperative Nutritional Appearance: average body habitus Orientation/consciousness: patient oriented x3 Limitations: no limitations HENMT: Head: normal to inspection Ears: hearing grossly normal bilaterally General nose exam: Normal external nose present Face and sinus: normal facial exam Mouth: Yes moist mucous membranes Teeth and gingiva: dentition normal Eyes: General: appearance normal, both eyes and all related structures Pupils: Equal, round and reactive pupils present EOM: EOMs intact bilaterally Neck: Neck: normal visual inspection Chest: Chest palpation & inspection: normal inspection of the chest Resp: Effort & Inspection: normal respiratory effort and able to speak in complete sentences Cardio: Jugular venous distension: no JVD Neuro: General: patient oriented x3 Cranial nerves: Yes Equal, round and reactive pupils present Extrem: Right lower extremity: ankle Details: normal to inspection, no edema and normal ROM; no tenderness and no swelling and foot Details: tenderness Location: of the dorsal foot and of the plantar foot, abnormal ROM of toe Details: pain with active ROM Location: of the 2nd digit and pain with passive ROM Location: of the 2nd digit, warmth Location: of the dorsal foot Location: distally and proximally and of the plantar foot Location: distally and proximally, edema Location: of the dorsal foot Location: distally and proximally and of the plantar foot Location: distally and proximally, vascular exam Details: dorsalis pedis pulse present and motor-sensory exam Details: two point discrimination abnormal and light-touch abnormal Other: RT foot dressing c/d/i. Toes with good cap refill Psych: Appearance: grossly normal Mental Status: mental status grossly normal Speech and movement: Normal speech and movement present Affect: normal affect Attitude: cooperative Thought process: Normal thought process present Objective Data Vital Signs Vital Signs: Vital Signs - 24 hr 05/30/20 08:00 05/30/20 09:18 05/30/20 14:00 Temperature 97.2 F L Pulse Rate 88 88 67 Respiratory Rate 20 16 Blood Pressure 182/85 H Pulse Oximetry 97 99 05/30/20 14:11 05/30/20 16:09 05/30/20 16:20 Temperature 99.0 F 97.3 F L Pulse Rate 72 63 66 Respiratory Rate 20 14 16 Blood Pressure 178/83 H 106/57 L 102/56 L Pulse Oximetry 100 100 100 05/30/20 16:35 05/30/20 16:50 05/30/20 17:05 Temperature Pulse Rate 68 68 66 Respiratory Rate 16 14 16 Blood Pressure 153/80 H 169/83 H 175/84 H Pulse Oximetry 100 100 100 05/30/20 17:09 05/30/20 17:24 05/30/20 20:15 Temperature 97.9 F 97.9 F Pulse Rate 67 71 86 Respiratory Rate 16 16 Blood Pressure 182/77 H 184/87 H Pulse Oximetry 100 100 05/30/20 22:51 05/30/20 22:54 05/31/20 06:00 Temperature 97.3 F L 97.3 F L Pulse Rate 83 70 67 Respiratory Rate 18 18 Blood Pressure 161/74 H 181/77 H Pulse Oximetry 99 99 100 Intake/Output Intake/Output: Intake & Output 05/28/20 05/29/20 05/30/20 05/31/20 23:59 23:59 23:59 23:59 Intake Total 1050 3420 950 650 Output Total 2150 2175 500 Balance 1050 1270 -1225 150 Meds/Results Medications: Active Medications Generic Name Dose Route Start Last Admin Trade Name Freq PRN Reason Stop Dose Admin Acetaminophen 650 mg 05/29/20 04:17 05/30/20 20:15
[2020-05-31 08:04] VITALS: O2SAT 99
[2020-05-31] MEDS: INSULIN ASPART (*BKC) 100 UNITS/ML SUB-Q ×3 (08:30→22:50)
[2020-05-31] MEDS: INSULIN GLARGINE (*BKC) 100 UNITS/ML 30 UNITS SUB-Q (08:31)
[2020-05-31] MEDS: CALCIUM CARBONATE (TUMS) 500 MG (200 MG ELEMENTAL) 300 MG PO ×3 (08:36→16:42)
[2020-05-31] MEDS: CHOLECALCIFEROL 1,000 UNITS TABLET 2000 UNITS PO (08:37)
[2020-05-31] MEDS: FAMOTIDINE 20 MG TABLET PO (08:37)
[2020-05-31] MEDS: DOCUSATE SODIUM 100 MG CAPSULE PO ×2 (08:37→16:41)
[2020-05-31] MEDS: CITALOPRAM HYDROBROMIDE 10 MG TABLET PO (08:37)
[2020-05-31] MEDS: LORATADINE 10 MG TABLET PO (08:38)
[2020-05-31] MEDS: ASCORBIC ACID 500 MG TABLET PO ×2 (08:38→16:42)
[2020-05-31] MEDS: SODIUM CHLORIDE 1 GM TABLET PO (08:40)
[2020-05-31] MEDS: LIPASE/AMYLASE/PROTEASE 12,000 UNITS CAP 3 CAP PO ×3 (08:40→16:41)
[2020-05-31 08:42] VITALS: PULSE 76
[2020-05-31] MEDS: METOPROLOL TARTRATE 50 MG TAB PO ×2 (08:42→20:54)
[2020-05-31] MEDS: LACTULOSE 20 GM/30 ML UDC PO ×4 (08:43→20:54)
[2020-05-31] MEDS: MULTIVITAMINS THERAPEUTIC TAB (*BKC) 1 TABLET PO (08:43)
[2020-05-31] MEDS: SPIRONOLACTONE 25 MG TABLET PO (08:43)
[2020-05-31] MEDS: THIAMINE HCL 100 MG TABLET PO (08:43)
[2020-05-31] MEDS: SODIUM POLYSTYRENE SULFONONATE 15 GM/60 ML BTL PO (09:02)
[2020-05-31] MEDS: HYDROcodone/acetaminophen (*CRX) 5-325 MG TABLET 2 TAB PO ×2 (09:03→22:03)
[2020-05-31] MEDS: lisinopriL 10 MG TABLET PO (09:03)
--- NOTE | 2020-05-31 11:05 | PM.IMPN ---
Progress Note: A&P Assessment and Plan (1) Osteomyelitis: Code(s): M86.9 - Osteomyelitis, unspecified Status: Acute Assessment and Plan: Patient lives at long term for the last 8 years and gets his wound services there. He states on 05/26/20 the patient started having some increased redness, swelling, pain, foul odor inside to come to emergency room for further evaluation due in a non improving symptoms. Patient MRI of his foot which showed Osteomyelitis involving second proximal phalanx. 1.9 x 1.2 x 1.7 cm fluid collection between and dorsal to the first and second metatarsophalangeal joints, consistent with abscess. Mild tenosynovitis of the second digit flexors. Small effusions of first and second metatarsophalangeal joints. Patient was taken to the OR for excisional debridement right diabetic foot infection, debridement abscess, Excision exostosis by Dr. Marie. Wound culture is growing group B strep, but the patient does have a history of MRSA infection about 1 year ago he states Will continue treatment with IV Primaxin and vancomycin Infectious disease physician consulted for antibiotic recommendations. Recommendations per Orthopedic team greatly appreciated Continue monitoring (2) Acute kidney injury superimposed on chronic kidney disease: Code(s): N17.9 - Acute kidney failure, unspecified; N18.9 - Chronic kidney disease, unspecified Status: Acute Assessment and Plan: Patient's baseline creatinine per his long term is 2.3. He does see Dr. Simms knife glazer as an outpatient. Creatinine on arrival was 2.9, and today it was 2.80. This could be his baseline, if becomes worse then will consider getting Nephrology involved. Renal ultrasound Echogenic kidneys, medical renal disease. No hydronephrosis. Continue monitoring. (3) Diabetic infection of right foot: Code(s): E11.628 - Type 2 diabetes mellitus with other skin complications; L08.9 - Local infection of the skin and subcutaneous tissue, unspecified Status: Acute Assessment and Plan: See above (4) Insulin dependent diabetes mellitus: Status: Chronic Assessment and Plan: Hemoglobin A1c is 7%. Well controlled. Will continue his regimen. Accu-Cheks AC and HS with sliding scale insulin. Hypoglycemic protocol in place (5) Depression with anxiety: Code(s): F41.8 - Other specified anxiety disorders Status: Chronic Assessment and Plan: Continue with Celexa. (6) Hypertension: Code(s): I10 - Essential (primary) hypertension Status: Chronic Assessment and Plan: Blood pressure this morning was elevated 181/77. Continue home medications and p.r.n. hydralazine. (7) Chronic pancreatitis: Code(s): K86.1 - Other chronic pancreatitis Status: Chronic Assessment and Plan: Patient is on Creon will continue with that. (8) Diabetic neuropathy: Qualifiers: Diabetes mellitus type: type 2 Diabetes mellitus complication detail: with other neurological complication Qualified Code(s): E11.49 - Type 2 diabetes mellitus with other diabetic neurological complication Code(s): E11.40 - Type 2 diabetes mellitus with diabetic neuropathy, unspecified Status: Chronic Assessment and Plan: Continue with home medications. (9) Acute hyperkalemia: Code(s): E87.5 - Hyperkalemia Status: Resolved Assessment and Plan: Potassium is elevated most likely due to his ZITA. 5.7 today, and gave Kayelelate
[2020-05-31 11:40] LABS: Glucose Point of Care 350 (65-105)
[2020-05-31 11:54] LABS: Glucose Point of Care 342 (65-105)
[2020-05-31] MEDS: SODIUM BICARBONATE 8.4% 75 MEQ in SODIUM CHLORIDE 0.45% 1,000 ML IV CONT (13:09)
[2020-05-31 14:00] VITALS: BP 172/84; PULSE 67; RESP 16; TEMP 36.2; O2SAT 99
--- NOTE | 2020-05-31 14:32 | PC.NURSE ---
On 05/31/20, the student, [Ravi Tavera ], provided care and completed [facility] documentation on this patient. I have reviewed the student's documentation and agree with the findings.
[2020-05-31 14:50] LABS: Add Urine Microscopic? YES; Appearance Urine Clear (Clear); Bilirubin Urine Negative (Negative); Blood Urine Negative (Negative); Color Urine Yellow (Yellow); Glucose Urine UA 3+ mg/dL (Negative); Ketones Urine Negative (Negative); Leukocyte Esterase Ur Negative LEU/UL (Negative); Nitrate Urine Negative (Negative); Protein Urine 2+ mg/dL (Negative); RBC Urine 0-2 /hpf (0-2); Specific Grav Ur 1.011 (1.001-1.035); Urobilinogen Urine Negative mg/dL (<2.0); WBC Urine 0-3 /hpf
[2020-05-31 14:58] LABS: Total Protein Urine Random 147 mg/dL; Ur Ttl Prot Creatinine Ratio 3.34 mg/mg (0-0.20)
[2020-05-31 15:02] LABS: Sodium Urine Random 72 meq/L
[2020-05-31 16:27] LABS: Eosinophil Urine None Seen % (None Seen)
--- NOTE | 2020-05-31 16:29 | PM.CNNEP ---
Assessment and Plan Assessment and plan (1) ZITA (acute kidney injury): Code(s): N17.9 - Acute kidney failure, unspecified Status: Acute Assessment and Plan: presumably due to infection (#3) worsened by use of spironolactone and JOSE CARLOS-I however, cannot deny the possibility of kidney disease progression renal ultrasound without acute issues nephrotic range proteinuria noted non-oliguric but acidosis and mild hyperkalemia noted trial of bicarb IVFs follow repeat labs and UOP (2) Stage 3b chronic kidney disease: Code(s): N18.32 - Chronic kidney disease, stage 3b Status: Chronic Assessment and Plan: creatine had been ~ 1.8 - 2.3mg/dl in the last year due to his HTN, DM, and vascular disease however, it is possible he may have had some progression in his kidney disease (3) Osteomyelitis of right foot: Code(s): M86.9 - Osteomyelitis, unspecified Status: Acute Assessment and Plan: as noted by MRI of right foot s/p debridement by Orthopedic Surgery wound cultures noted Infectious Disease consulted (4) Hyperkalemia: Code(s): E87.5 - Hyperkalemia Status: Acute Assessment and Plan: due to #1, acidosis, and use of JOSE CARLOS-I and spironolactone holding lisinopril and spironolactone trial of bicarb fluids follow repeat labs (5) Metabolic acidosis: Code(s): E87.2 - Acidosis Status: Acute Assessment and Plan: due to #1 but may have a chronic component bicarb fluids to compensate (6) Hypertension: Code(s): I10 - Essential (primary) hypertension Status: Chronic Assessment and Plan: somewhat on the high side currently partly due to pain(?) would avoid overcontrol of BP given #1 consider adding PRN IV hydralazine follow hemodynamics (7) Insulin dependent diabetes mellitus: Status: Chronic Assessment and Plan: follow accuchecks glycemic control Will continue to follow. History of Present Illness Reason for Consult Consult date: 05/31/20 Reason for consult: acute renal failure (on chronic kidney disease) Chief Complaint Chief complaint: Diabetic foot ulcer infection History of Present Illness Narrative: The patinent is a 50-year-old male with an extensive past medical history as outlined below who presented to [facility] ER for evaluation of a right foot wound. The patient states that he has had this right foot wound for years in apparently is followed at his nursing facility by wound care. It has been relatively stable since its development but apparently, in the last few days prior to admission, he has noticed increased redness /warmth /swelling to this area in association with a foul order. He gave no symptoms of overt fevers or chills or diaphoresis and denies any complaints of chest pain or shortness of breath. However, given the sudden change in the appearance of the right foot wound, he presented to the emergency room for further evaluation. Workup and evaluation emergency room demonstrated the patient to be hemodynamically stable and in no acute distress. On physical exam, it was noted that the right foot wound was clearly erythematous and associated with some drainage. It was felt that given his history of diabetes, this is most likely a diabetic foot ulcer but the concern of course is that given the change in appearance that there may be some underlying infection and possibly even osteomyelitis. Routine blood test demonstrated labs consistent with his known history of chronic kidney disease although his BUN and creatinine seem to be a bit higher than baseline. It was felt that he would need further intervention with regard to the aforemention diabetic foot wound and hence appropriate cultures were obtained and he was started on broad-spectrum IV antibiotic therapy with subsequent admission to the hospital. Since admission, orthopedics has been consul
--- NOTE | 2020-05-31 16:29 | P.CONNP_ITS ---
Assessment and Plan Assessment and plan (1) ZITA (acute kidney injury): Code(s): N17.9 - Acute kidney failure, unspecified Status: Acute Assessment and Plan: * presumably due to infection (#3) worsened by use of spironolactone and JOSE CARLOS-I * however, cannot deny the possibility of kidney disease progression * renal ultrasound without acute issues * nephrotic range proteinuria noted * non-oliguric but acidosis and mild hyperkalemia noted * trial of bicarb IVFs * follow repeat labs and UOP (2) Stage 3b chronic kidney disease: Code(s): N18.32 - Chronic kidney disease, stage 3b Status: Chronic Assessment and Plan: * creatine had been ~ 1.8 - 2.3mg/dl in the last year * due to his HTN, DM, and vascular disease * however, it is possible he may have had some progression in his kidney disease (3) Osteomyelitis of right foot: Code(s): M86.9 - Osteomyelitis, unspecified Status: Acute Assessment and Plan: * as noted by MRI of right foot * s/p debridement by Orthopedic Surgery * wound cultures noted * Infectious Disease consulted (4) Hyperkalemia: Code(s): E87.5 - Hyperkalemia Status: Acute Assessment and Plan: * due to #1, acidosis, and use of JOSE CARLOS-I and spironolactone * holding lisinopril and spironolactone * trial of bicarb fluids * follow repeat labs (5) Metabolic acidosis: Code(s): E87.2 - Acidosis Status: Acute Assessment and Plan: * due to #1 but may have a chronic component * bicarb fluids to compensate (6) Hypertension: Code(s): I10 - Essential (primary) hypertension Status: Chronic Assessment and Plan: * somewhat on the high side currently * partly due to pain(?) * would avoid overcontrol of BP given #1 * consider adding PRN IV hydralazine * follow hemodynamics (7) Insulin dependent diabetes mellitus: Status: Chronic Assessment and Plan: * follow accuchecks * glycemic control Will continue to follow. History of Present Illness Reason for Consult Consult date: 05/31/20 Reason for consult: acute renal failure (on chronic kidney disease) Chief Complaint Chief complaint: Diabetic foot ulcer infection History of Present Illness Narrative: The patinent is a 50-year-old male with an extensive past medical history as outlined below who presented to [facility] ER for evaluation of a right foot wound. The patient states that he has had this right foot wound for years in apparently is followed at his nursing facility by wound care. It has been relatively stable since its development but apparently, in the last few days prior to admission, he has noticed increased redness /warmth /swelling to this area in association with a foul order. He gave no symptoms of overt fevers or chills or diaphoresis and denies any complaints of chest pain or shortness of breath. However, given the sudden change in the appearance of the right foot wound, he presented to the emergency room for further evaluation. Workup and evaluation emergency room demonstrated the patient to be hemodynamically stable and in no acute distress. On physical exam, it was noted that the right foot wound was clearly erythematous and associated with some drainage. It was felt that given his history of diabetes, this is most likely a diabetic foot ulcer but the concern of course is that given the change in appearance that there may be some underlying infection and possibly even osteomyelitis. Routine blood test demonstrated labs consistent with his
[2020-05-31 17:37] LABS: Glucose Point of Care 192 (65-105)
[2020-05-31 21:08] LABS: SARS-CoV-2 RNA PCR Negative
[2020-05-31 21:25] VITALS: O2SAT 96
[2020-05-31 22:00] VITALS: BP 173/78; PULSE 65; RESP 18; TEMP 36.6; O2SAT 100
[2020-05-31] MEDS: MELATONIN 5 MG TABLET 10 MG PO (22:04)
[2020-05-31 22:16] LABS: Glucose Point of Care 341 (65-105)
[2020-06-01 06:00] VITALS: BP 179/91; PULSE 54; RESP 18; TEMP 36.6; O2SAT 98
[2020-06-01 06:03] LABS: Basophils Absolute Auto 0.1 K/mm3 (0.0-0.1); Basophils Percent Auto 1.1 % (0.2-1.2); Eosinophils Absolute Auto 0.7 K/mm3 (0-0.3); Eosinophils Percent Auto 8.1 % (0-4.4); Hematocrit 34.5 % (42.0-52.0); Hemoglobin 11.6 g/dL (14.0-18.0); Immature Granulocyte Absolute 0.05 K/mm3 (0.00-0.031); Immature Granulocyte Percent A 0.6 % (0-0.5); Lymphocytes Absolute Auto 1.94 K/mm3 (0.9-3.2); Lymphocytes Percent Auto 22.9 % (18.3-44.2); Mean Corpuscular HGB Conc 33.6 g/dl (32-36); Mean Corpuscular Hemoglobin 29.8 pg (26-34); Mean Corpuscular Volume 88.7 fl (80-100); Mean Platelet Volume 9.9 fl (7.4-10.4); Monocytes Absolute Auto 0.7 K/mm3 (0.1-0.6); Monocytes Percent Auto 7.9 % (2.6-8.5); Neutrophils Percent Auto 59.4 % (45.5-73.1); Platelet Count Result 249 k/mm3 (150-375); Red Blood Count 3.89 M/mm3 (4.6-6.20); Red Cell Distribution Width 13.2 % (11.5-14.5); White Blood Count 8.5 K/mm3 (4.5-10.0)
[2020-06-01 06:15] LABS: Albumin Level 3.3 g/dL (3.5-5.1); Anion Gap 7 mmol/L (8-16); Blood Urea Nitrogen 37 mg/dL (9-20); Calcium 8.1 mg/dL (8.4-10.2); Carbon Dioxide 21 mmol/L (22-30); Chloride 108 mmol/L (98-107); Estimated CRCL calculation 31 ml/min; Estimated Glomerular Filt Rate 21; Glucose 126 mg/dL (75-110); Magnesium 1.7 mg/dL (1.6-2.3); Phosphorus 4.3 mg/dL (2.5-4.5); Potassium 4.9 mmol/L (3.4-5.0); Sodium 136 mmol/L (137-145)
[2020-06-01] MEDS: hydrALAZINE HCL 20 MG/ML VIAL 10 MG IV PUSH (06:30)
[2020-06-01] MEDS: SODIUM BICARBONATE 8.4% 75 MEQ in SODIUM CHLORIDE 0.45% 1,000 ML IV CONT (06:34)
[2020-06-01 07:48] LABS: Glucose Point of Care 136 (65-105)
[2020-06-01] MEDS: LACTULOSE 20 GM/30 ML UDC PO ×2 (08:49→11:55)
[2020-06-01] MEDS: amLODIPine BESYLATE 5 MG TABLET PO (08:49)
[2020-06-01 08:50] VITALS: PULSE 66
[2020-06-01] MEDS: ASCORBIC ACID 500 MG TABLET PO (08:50)
[2020-06-01] MEDS: CHOLECALCIFEROL 1,000 UNITS TABLET 2000 UNITS PO (08:50)
[2020-06-01] MEDS: CITALOPRAM HYDROBROMIDE 10 MG TABLET PO (08:50)
[2020-06-01] MEDS: LIPASE/AMYLASE/PROTEASE 12,000 UNITS CAP 3 CAP PO ×2 (08:50→11:56)
[2020-06-01] MEDS: MULTIVITAMINS THERAPEUTIC TAB (*BKC) 1 TABLET PO (08:50)
[2020-06-01] MEDS: METOPROLOL TARTRATE 50 MG TAB PO (08:50)
[2020-06-01] MEDS: FAMOTIDINE 20 MG TABLET PO (08:50)
[2020-06-01] MEDS: DOCUSATE SODIUM 100 MG CAPSULE PO (08:50)
[2020-06-01] MEDS: CALCIUM CARBONATE (TUMS) 500 MG (200 MG ELEMENTAL) 300 MG PO ×2 (08:50→11:55)
[2020-06-01] MEDS: SODIUM CHLORIDE 1 GM TABLET PO (08:50)
[2020-06-01] MEDS: LORATADINE 10 MG TABLET PO (08:51)
[2020-06-01] MEDS: THIAMINE HCL 100 MG TABLET PO (08:51)
[2020-06-01] MEDS: INSULIN GLARGINE (*BKC) 100 UNITS/ML 30 UNITS SUB-Q (09:07)
[2020-06-01] MEDS: HYDROcodone/acetaminophen (*CRX) 5-325 MG TABLET 2 TAB PO (09:10)
--- NOTE | 2020-06-01 09:27 | PM.PNORT ---
Progress Note: A&P Assessment and Plan (1) Diabetic infection of right foot: Code(s): E11.628 - Type 2 diabetes mellitus with other skin complications; L08.9 - Local infection of the skin and subcutaneous tissue, unspecified Status: Acute Assessment and Plan: POD #2 RT foot debridement. Dressing changed. Continue daily dressing changes with adaptic to incision lines, cover with gauze and wrap with Kerlex. Continue IV antibiotics. Awaiting ID consult. Final wound cultures with Group B Streptococcus PWB with post op shoe. PT/OT. Dispo: Pending antibiotic recommendations and medical clearance. Will arrange follow up in the outpatient wound clinic pending discharge for wound care. Subjective Subjective Date/Time Seen: 06/01/20 09:15 Post Op day: 2 Interval history: POD #2: I&D Right DFU Anxious to go home. Mild right foot pain. No new complaints. Review of Systems Review of Systems: All systems reviewed & are unremarkable except as noted in HPI and below (HPI ) Exam Const: General: cooperative Nutritional Appearance: average body habitus Orientation/consciousness: patient oriented x3 Limitations: no limitations HENMT: Head: normal to inspection Ears: hearing grossly normal bilaterally General nose exam: Normal external nose present Face and sinus: normal facial exam Mouth: Yes moist mucous membranes Teeth and gingiva: dentition normal Eyes: General: appearance normal, both eyes and all related structures Pupils: Equal, round and reactive pupils present EOM: EOMs intact bilaterally Neck: Neck: normal visual inspection Chest: Chest palpation & inspection: normal inspection of the chest Resp: Effort & Inspection: normal respiratory effort and able to speak in complete sentences Cardio: Jugular venous distension: no JVD Neuro: General: patient oriented x3 Cranial nerves: Yes Equal, round and reactive pupils present Extrem: Right lower extremity: ankle Details: normal to inspection, no edema and normal ROM; no tenderness and no swelling and foot Details: tenderness Location: of the dorsal foot and of the plantar foot, abnormal ROM of toe Details: pain with active ROM Location: of the 2nd digit and pain with passive ROM Location: of the 2nd digit, warmth Location: of the dorsal foot Location: distally and proximally and of the plantar foot Location: distally and proximally, edema Location: of the dorsal foot Location: distally and proximally and of the plantar foot Location: distally and proximally, vascular exam Details: dorsalis pedis pulse present and motor-sensory exam Details: two point discrimination abnormal and light-touch abnormal Other: Right foot dressing changed. Incision well approximated on the dorsal aspect of the 1st interspace and the plantar aspect of the 2nd Met Head. Mild serosanguineous drainage. Improvement in erythema and swelling noted. Mild pain on the dorsal aspect of the forefoot. Psych: Appearance: grossly normal Mental Status: mental status grossly normal Speech and movement: Normal speech and movement present Affect: normal affect Attitude: cooperative Thought process: Normal thought process present Objective Data Vital Signs Vital Signs: Vital Signs - 24 hr 05/31/20 14:00 05/31/20 21:25 05/31/20 22:00 Temperature 36.2 C L 36.6 C Pulse Rate 67 65 Respiratory Rate 16 18 Blood Pressure 172/84 H 173/78 H Pulse Oximetry 99 96 100 06/01/20 06:00 06/01/20 08:50 Temperature 36.6 C Pulse Rate 54 L 66 Respiratory Rate 18 Blood Pressure 179/91 H Pulse Oximetry 98 Intake/Output Intake/Output: Intake & Output 05/29/20 05/30/20 05/31/20 06/01/20 23:59 23:59 23:59 23:59 Intake Total 3420 950 2670 1775 Output Total 2150 2175 1450 1900 Balance 1270 -1225 1220 -125 Meds/Results Medications: Active Medications Generic Name Dose Route Start Last Admin Trade Name Freq PRN Reason Stop Dose Admin Acetaminophen 650 mg 05/29/20 04:17 04/
[2020-06-01 11:44] LABS: Glucose Point of Care 205 (65-105)
[2020-06-01] MEDS: INSULIN ASPART (*BKC) 100 UNITS/ML SUB-Q (11:51)
--- NOTE | 2020-06-01 13:34 | WPDINFPN2 ---
Progress Note: A&P Assessment and Plan (1) Foot abscess, right: Code(s): L02.611 - Cutaneous abscess of right foot Status: Acute Assessment and Plan: Grp B Strep abscess, no osteomyelitis at time of operation despite MRI reading REC Ampicillin orally x 2 weeks, adjust for his CRI. Ok discharge Subjective Date/time seen: 06/01/20 13:34 Objective Data Vital Signs Vital Signs: Vital Signs - 24 hr 05/31/20 14:00 05/31/20 21:25 05/31/20 22:00 Temperature 36.2 C L 36.6 C Pulse Rate 67 65 Respiratory Rate 16 18 Blood Pressure 172/84 H 173/78 H Pulse Oximetry 99 96 100 06/01/20 06:00 06/01/20 08:50 Temperature 36.6 C Pulse Rate 54 L 66 Respiratory Rate 18 Blood Pressure 179/91 H Pulse Oximetry 98 Intake/Output Intake/Output: Intake & Output 05/29/20 05/30/20 05/31/20 06/01/20 23:59 23:59 23:59 23:59 Intake Total 3420 950 2670 2305 Output Total 2150 2175 1450 1900 Balance 1270 -1225 1220 405 Meds/Results Medications: Active Medications Generic Name Dose Route Start Last Admin Trade Name Freq PRN Reason Stop Dose Admin Acetaminophen 650 mg 05/29/20 04:17 05/30/20 20:15 Acetaminophen 325 Mg Tablet PO 650 mg Q4H PRN Administration Mild Pain (1-3) or Fever Hydrocodone Bitart/Acetaminophen 2 tab 05/30/20 17:09 06/01/20 09:10 Hydrocodone/Acetaminophen (*Crx) 5-325 Mg Tablet PO 2 tab Q6H PRN Administration Pain Rated 7-10 Amlodipine Besylate 5 mg 06/01/20 09:00 06/01/20 08:49 Amlodipine Besylate 5 Mg Tablet PO 5 mg QAM NAHUM Administration Ampicillin 1,000 mg 06/01/20 21:00 Ampicillin Trihydrate 500 Mg Capsule PO 06/15/20 21:01 Q12HR NAHUM Lipase/Protease/Amylase 3 cap 05/29/20 09:00 06/01/20 11:56 Lipase/Amylase/Protease 12,000 Units Cap PO 06/28/20 09:01 3 cap TID NAHUM Administration Ascorbic Acid 500 mg 05/29/20 09:00 06/01/20 08:50 Ascorbic Acid 500 Mg Tablet PO 500 mg BID NAHUM Administration Calcium Carbonate 300 mg 05/29/20 09:00 06/01/20 11:55 Calcium Carbonate (Tums) 500 Mg (200 Mg Elemental) PO 06/28/20 09:01 300 mg TID NAHUM Administration Citalopram Hydrobromide 10 mg 05/29/20 09:00 06/01/20 08:50 Citalopram Hydrobromide 10 Mg Tablet PO 10 mg DAILY NAHUM Administration Dextrose 12.5 gm 05/28/20 18:00 Dextrose 50% 25 Gm/50 Ml Syringe IV PUSH PRN PRN Hypoglycemia Protocol Docusate Sodium 100 mg 05/29/20 09:00 06/01/20 08:50 Docusate Sodium 100 Mg Capsule PO 100 mg BID NAHUM Administration Famotidine 20 mg 05/29/20 09:00 06/01/20 08:50 Famotidine 20 Mg Tablet PO 20 mg DAILY NAHUM Administration Fluticasone Propionate 1 spray 05/29/20 04:53 Fluticasone Propionate 0.05% Na Spr 16 Gm Btl (*Bkc) NASAL Q12H PRN Allergy Symptoms Glucose 15 gm 05/28/20 18:00 Glucose Oral Gel 15 Gm Of Glucse In 37.5 Gm Tube PO PRN PRN Hypoglycemia Protocol Hydralazine HCl 10 mg 05/28/20 21:24 06/01/20 06:30 Hydralazine Hcl 20 Mg/Ml Vial IV PUSH 10 mg Q8H PRN Administration Blood Pressure - High Sodium Bicarbonate 75 meq/ 1,075 mls @ 75 mls/hr 05/31/20 12:45 06/01/20 06:34 Sodium Chloride IV CONT 75 mls/hr .[id number] NAHUM Administration Insulin Aspart 3 - 6 units 05/29/20 08:00 06/01/20 11:51 Insulin Aspart (*Bkc) 100 Units/Ml SUB-Q 3 units TIDWM NAHUM Administration Protocol Insulin Glargine 30 units 05/29/20 09:00 06/01/20 09:07 Insulin Glargine (*Bkc) 100 Units/Ml SUB-Q 30 units QAM NAHUM Administration Lactulose 20 gm 05/29/20 09:00 06/01/20 11:55 Lactulose 20 Gm/30 Ml Udc PO 06/28/20 09:01 20 gm QID NAHUM Administration Lisinopril 10 mg 05/31/20 09:00 05/31/20 09:03 Lisinopril 10 Mg Tablet PO 10 mg DAILY [facility] Administration Loratadine 10 mg 05/29/20 09:00 06/01/20 08:51 Loratadine 10 Mg Tablet PO 06/28/20 09:01 10 mg DAILY [facility] Administratio
[2020-06-01 14:00] VITALS: BP 146/77; PULSE 57; RESP 20; TEMP 37; O2SAT 99
--- NOTE | 2020-06-01 14:19 | PM.PNNEP ---
Progress Note: A&P Assessment and Plan (1) ZITA (acute kidney injury): Code(s): N17.9 - Acute kidney failure, unspecified Status: Acute Assessment and Plan: presumably due to infection (#3) worsened by use of spironolactone and JOSE CARLOS-I however, cannot deny the possibility of kidney disease progression renal ultrasound without acute issues nephrotic range proteinuria noted non-oliguric (good urine output noted) tolerated bicarb IVFs with improvement in acidosis and elevated K+ follow repeat labs and UOP (2) Stage 3b chronic kidney disease: Code(s): N18.32 - Chronic kidney disease, stage 3b Status: Chronic Assessment and Plan: creatine had been ~ 1.8 - 2.3mg/dl in the last year due to his HTN, DM, and vascular disease however, I suspect he may have had some progression in his kidney disease in general (3) Osteomyelitis of right foot: Code(s): M86.9 - Osteomyelitis, unspecified Status: Acute Assessment and Plan: as noted by MRI of right foot s/p debridement by Orthopedic Surgery (although operative findings do not correlate with MRI results) wound cultures noted Infectious Disease recommendations noted (4) Hyperkalemia: Code(s): E87.5 - Hyperkalemia Status: Acute Assessment and Plan: due to #1, acidosis, and use of JOSE CARLOS-I and spironolactone holding lisinopril and spironolactone responded to bicarb IVFs follow repeat labs (5) Metabolic acidosis: Code(s): E87.2 - Acidosis Status: Acute Assessment and Plan: better due to #1 but may have a chronic component bicarb fluids to compensate (6) Hypertension: Code(s): I10 - Essential (primary) hypertension Status: Chronic Assessment and Plan: somewhat on the high side currently partly due to pain(?) would avoid overcontrol of BP given #1 would hold JOSE CARLOS-I and spironolactone and agree with amlodipine for now follow hemodynamics (7) Insulin dependent diabetes mellitus: Status: Chronic Assessment and Plan: follow accuchecks on Lantus and SSI Will continue to follow -- not opposed to discharge from renal perspective; if ZITA related to infection, should improve with time but as mentioned already, I wonder if he has had some degree of CKD progression as well; continue to hold JOSE CARLOS-I and spironolactone on discharge and leave on amlodipine for BP control; repeat labs in a week and he can follow-up with me in clinic in about 3 - 4 weeks. Subjective Date/time seen: 06/01/20 14:19 Appears to be doing reasonably at the time of my visit; no apparent distress noted; pain control appears satisfactory; extremely anxious for discharge; no apparent distress noted. Exam Narrative: Exam Narrative: General: WD/WN male in NAD Heart: normal S1 and S2; no rub Lungs: clear to auscultation Abdomen: soft, nontender, nondistended, positive bowel sounds Extremities: no cyanosis or clubbing; no edema Skin: right foot dressings in place Objective Data Vital Signs Vital Signs: Vital Signs Temp Pulse Resp BP Pulse Ox 06/01/20 14:00 37.0 C 57 L 20 146/77 H 99 06/01/20 08:50 66 06/01/20 06:00 36.6 C 54 L 18 179/91 H 98 05/31/20 22:00 36.6 C 65 18 173/78 H 100 05/31/20 21:25 96 Intake/Output Intake/Output: Intake & Output 05/29/20 05/30/20 05/31/20 06/01/20 23:59 23:59 23:59 23:59 Intake Total 3420 950 2670 2355 Output Total 2150 2175 1450 1900 Balance 1270 -1225 1220 455 Meds/Results Medications: Active Medications Generic Name Dose Route Start Last Admin Trade Name Freq PRN Reason Stop Dose Admin Acetaminophen 650 mg 05/29/20 04:17 05/30/20 20:15 Acetaminophen 325 Mg Tablet PO 650 mg Q4H PRN Administration Mild Pain (1-3) or Fever Hydrocodone Bitart/Acetaminophen 2 tab 05/30/20 17:09 06/01/20 09:10 Hydrocodone/Acetaminophen (*Crx) 5-325 Mg Tablet PO 2 tab
--- NOTE | 2020-06-01 14:19 | P.PNNP_ITS ---
Progress Note: A&P Assessment and Plan (1) ZITA (acute kidney injury): Code(s): N17.9 - Acute kidney failure, unspecified Status: Acute Assessment and Plan: * presumably due to infection (#3) worsened by use of spironolactone and JOSE CARLOS-I * however, cannot deny the possibility of kidney disease progression * renal ultrasound without acute issues * nephrotic range proteinuria noted * non-oliguric (good urine output noted) * tolerated bicarb IVFs with improvement in acidosis and elevated K+ * follow repeat labs and UOP (2) Stage 3b chronic kidney disease: Code(s): N18.32 - Chronic kidney disease, stage 3b Status: Chronic Assessment and Plan: * creatine had been ~ 1.8 - 2.3mg/dl in the last year * due to his HTN, DM, and vascular disease * however, I suspect he may have had some progression in his kidney disease in general (3) Osteomyelitis of right foot: Code(s): M86.9 - Osteomyelitis, unspecified Status: Acute Assessment and Plan: * as noted by MRI of right foot * s/p debridement by Orthopedic Surgery (although operative findings do not correlate with MRI results) * wound cultures noted * Infectious Disease recommendations noted (4) Hyperkalemia: Code(s): E87.5 - Hyperkalemia Status: Acute Assessment and Plan: * due to #1, acidosis, and use of JOSE CARLOS-I and spironolactone * holding lisinopril and spironolactone * responded to bicarb IVFs * follow repeat labs (5) Metabolic acidosis: Code(s): E87.2 - Acidosis Status: Acute Assessment and Plan: * better * due to #1 but may have a chronic component * bicarb fluids to compensate (6) Hypertension: Code(s): I10 - Essential (primary) hypertension Status: Chronic Assessment and Plan: * somewhat on the high side currently * partly due to pain(?) * would avoid overcontrol of BP given #1 * would hold JOSE CARLOS-I and spironolactone and agree with amlodipine for now * follow hemodynamics (7) Insulin dependent diabetes mellitus: Status: Chronic Assessment and Plan: * follow accuchecks * on Lantus and SSI Will continue to follow -- not opposed to discharge from renal perspective; if ZITA related to infection, should improve with time but as mentioned already, I wonder if he has had some degree of CKD progression as well; continue to hold JOSE CARLOS-I and spironolactone on discharge and leave on amlodipine for BP control; repeat labs in a week and he can follow-up with me in clinic in about 3 - 4 weeks. Subjective Date/time seen: 06/01/20 14:19 Appears to be doing reasonably at the time of my visit; no apparent distress noted; pain control appears satisfactory; extremely anxious for discharge; no apparent distress noted. Exam Narrative: Exam Narrative: General: WD/WN male in NAD Heart: normal S1 and S2; no rub Lungs: clear to auscultation Abdomen: soft, nontender, nondistended, positive bowel sounds Extremities: no cyanosis or clubbing; no edema Skin: right foot dressings in place Objective Data Vital Signs Vital Signs: Vital Signs Temp Pulse Resp BP Pulse Ox 06/01/20 14:00 37.0 C 57 L 20 146/77 H 99 06/01/20 08:50 66 06/01/20 06:00 36.6 C 54 L 18 179/91 H 98 05/31/20 22:00 36.6 C 65 18 173/78 H 100 05/31/20 21:25 96 Intake/Output Intake/Output: Intake & Output
--- NOTE | 2020-06-01 14:34 | PM.DS ---
DS: Admitting Diagnosis Admitting Diagnosis Admitting Diagnosis: DM Foot wound infection DS: Discharge Diagnosis Discharge Diagnosis (1) Diabetic infection of right foot: Code(s): E11.628 - Type 2 diabetes mellitus with other skin complications; L08.9 - Local infection of the skin and subcutaneous tissue, unspecified Status: Acute Assessment and Plan: [facility] and gets his wound services there. He states on 05/26/20 the patient started having some increased redness, swelling, pain, foul odor inside to come to emergency room for further evaluation due in a non improving symptoms. Patient MRI of his foot which showed Osteomyelitis involving second proximal phalanx. 1.9 x 1.2 x 1.7 cm fluid collection between and dorsal to the first and second metatarsophalangeal joints, consistent with abscess. Mild tenosynovitis of the second digit flexors. Small effusions of first and second metatarsophalangeal joints. Patient was taken to the OR for excisional debridement right diabetic foot infection, debridement abscess, Excision exostosis by Dr. Marie. Wound culture is growing group B strep, but the patient does have a history of MRSA infection about 1 year ago he states Infectious disease physician consulted and recommended the patient be on Ampicillin orally x2 weeks. Patient is stable at this time for discharge to continue oral antibiotics. Follow orthopedic recommendations on dressing changes and follow-up with them as stated in their discharge recommendations. (2) Acute kidney injury superimposed on chronic kidney disease: Code(s): N17.9 - Acute kidney failure, unspecified; N18.9 - Chronic kidney disease, unspecified Status: Acute Assessment and Plan: Patient's baseline creatinine per his [facility] is 2.3. He does see Dr. Simms internet marketer as an outpatient but has not seen him in 1 year. Creatinine on arrival was 2.9, and today it was 3.10. Renal ultrasound Echogenic kidneys, medical renal disease. No hydronephrosis. Consulted nephrology on the patient's case who recommended discontinuing the patient spironolactone and JOSE CARLOS-inhibitor. Recommended checking a renal panel in 1 week and having him follow-up in the office. Will continue to hold spironolactone and JOSE CARLOS-inhibitor at this time. (3) Insulin dependent diabetes mellitus: Status: Chronic Assessment and Plan: Hemoglobin A1c is 7%. Well controlled. Will continue his regimen. (4) Depression with anxiety: Code(s): F41.8 - Other specified anxiety disorders Status: Chronic Assessment and Plan: Continue with Celexa. (5) Hypertension: Code(s): I10 - Essential (primary) hypertension Status: Chronic Assessment and Plan: Blood pressure this morning was elevated this morning at 179/91 and started amlodipine 5 mg this morning. Blood pressure improved to 146/77. I discussed with the internet marketer who recommended to continue him on amlodipine 5 mg until he follows up with him in the office and he can further adjust if necessary. Told his [facility] to check blood pressure twice daily and keep a blood pressure log. (6) Chronic pancreatitis: Code(s): K86.1 - Other chronic pancreatitis Status: Chronic Assessment and Plan: Patient is on Creon will continue with that. (7) Diabetic neuropathy: Qualifiers: Diabetes mellitus complication detail: with other neurological complication Diabetes mellitus type: type 2 Qualified Code(s): E11.49 - Type 2 diabetes mellitus with other diabetic neurological complication Code(s): E11.40 - Type 2 d
--- NOTE | 2020-06-01 18:23 | CONS_ITS ---
DATE OF CONSULTATION: 06/01/2020 REASON FOR CONSULTATION: Foot abscess. HISTORY OF PRESENT ILLNESS: A 50-year-old male with long-standing diabetes and peripheral neuropathy. He relates a longstanding ulcer on the plantar aspect of the right foot. He says, he had an MRSA infection there about 2 years ago, treated with oral antibiotics for about 2 weeks with clinical improvement that he can recall. He has had multiple debridements over the last 2+ years to the ulcer and nonetheless will not heal. He has had no previous infections otherwise to the foot. He reports to me that he is a [facility] in a [facility] due to pancreatitis. He was admitted on May 28 with odor and edema of the foot. He has been given imipenem and vancomycin initially, changed yesterday to piperacillin, tazobactam. He was taken to the operating room on May [address] Marie, underwent excision and debridement of the abscess, exostosis. Findings included also communicating with the 2nd metatarsal. Abscess was encountered deep to the fascia in the area of the 1st web space. Capsulotomy also performed. No osteomyelitis was detected. Wound was loosely approximated with sutures. He has poor sensation and is not currently experiencing pain. No fever, chills, or sweats. Medication list does not indicate immunosuppressants. No antibiotics prior to admission. HABITS: Ex alcoholism, half pack per day smoker. ALLERGIES: NONE KNOWN. PAST MEDICAL HISTORY: In addition to the above, depression, anxiety, hypertension, ORIF of a fracture on his arm. FAMILY HISTORY: Breast cancer. SOCIAL HISTORY: He is single. No children and does not work outside the home. REVIEW OF SYSTEMS: Constitutional, skin, musculoskeletal, GI, respiratory otherwise negative. PHYSICAL EXAMINATION: GENERAL: male appears actual age. No acute distress, afebrile. VITAL SIGNS: 139/91, 54, 18, 98% on room air. SKIN: Warm and dry. NODES: No cervical adenopathy. EENT: Conjunctivae are clear. The oral mucosa is well hydrated. NECK: No masses, thyromegaly, or meningismus. LUNGS: Clear to auscultation. CARDIAC: Regular rate and rhythm. No murmur, or gallop. Pulses are 2+. ABDOMEN: Nontender, soft. No bruits. No organomegaly. EXTREMITIES: His right foot is dressed. There is no proximal erythema or tenderness. He has some diabetic dermopathy. LABORATORY DATA: Wound culture shortly after arrival, group B strep with a Gram stain, similar findings. Blood cultures, no growth 4 days incubation. White blood cell count 8.5, hemoglobin 11.6, platelets are 249. Differential shows 8% eosinophiles, otherwise normal. He has hyponatremia. BUN 37, creatinine 3.1. Accu-Cheks variable. Hemoglobin A1c 7%. Albumin 3.3, otherwise liver function tests normal. RADIOLOGY: Plain films of the foot, soft tissue swelling, foot MRI, osteomyelitis, abscess, tenosynovitis, small effusions. Renal ultrasound, echogenic kidneys suggestive of medical renal disease. ASSESSMENT: 1. Group B strep abscess of the right foot, soft tissue without osteomyelitis demonstrated at the time of operation. He has been debrided and clinically improved. 2. Chronic renal insufficiency. 3. Diabetes mellitus with neuropathy. RECOMMENDATIONS: 1. Ampicillin for 2 additional weeks and adjust for his renal insufficiency. 2. Okay with me for discharge and continue local wound care. Thank you for asking me to see him. MILTON CUNHA M.D. NETWORK ACCOUNT MANAGER NETWORK ACCOUNT MANAGER D I MT: Fannie
[2020-06-03 11:52] LABS: Myoglobin, Urine 713 mcg/L (<28)
[2020-06-04 16:28] LABS: Chloride Rand Ur 61 mmol/L (32-290); Chloride/Creatinine Rand Ur 136 (23-275); Creatinine Random Urine 45 mg/dL (20-320)
--- NOTE | 2020-06-06 08:35 | PC.NURSE ---
Blood cx are negative.
== END 2020-06-01 16:14 | DRG 951 ==
LOC: ANHED 18:06 → ANH3MEDSUR 21:14
PROVIDERS: Family Medicine; Internal Medicine Nephrology; Nurse Practitioner; Orthopaedic Surgery; Admitting Provider Internal Medicine; Emergency Provider Emergency Medicine; Visit Provider Physician Assistant
PROC: 0KBV0ZZ Excision of Right Foot Muscle, Open Approach (ICD-10-PCS; principal; 2020-05-30 15:00)
DX: E11.628 Type 2 diabetes mellitus with other skin complications (principal); L02.611 Cutaneous abscess of right foot; B95.1 Streptococcus, group B, as the cause of diseases classified elsewhere; Z20.822 Contact with and (suspected) exposure to COVID-19; N17.9 Acute kidney failure, unspecified; E11.22 Type 2 diabetes mellitus with diabetic chronic kidney disease; N18.32 Chronic kidney disease, stage 3b; F41.8 Other specified anxiety disorders; I10 Essential (primary) hypertension; K86.1 Other chronic pancreatitis; E11.40 Type 2 diabetes mellitus with diabetic neuropathy, unspecified; E87.5 Hyperkalemia; E83.42 Hypomagnesemia; E87.1 Hypo-osmolality and hyponatremia; E87.2 Acidosis; F17.210 Nicotine dependence, cigarettes, uncomplicated
CPT/HCPCS: 36415; 73630; 73718; 76775; 80048; 80069; 81001; 81050; 82436; 82570; 82948; 83036; 83605; 83615; 83690; 83735; 83874; 84156; 84300; 85025; 85999; 87040; 87070; 87147; 87205; 96365; 97110; 97116; 97161; 97165; 99285; A9270; C9803; J0360; J0743; J1100; J1815; J2250; J2405; J2543; J2704; J3010; J3370; J3475; J7120; U0003; U0005

== ENCOUNTER 2020-07-25 07:27 | Outpatient (RCR) | payer OTHER, SELFPAY ==
--- NOTE | 2020-06-16 09:05 | P.PNOP_ITS ---
Progress Note: A&P Assessment and Plan (1) Foot abscess, right: Code(s): L02.611 - Cutaneous abscess of right foot Status: Acute Assessment and Plan: 2.5 weeks status post debridement right foot and excision of 2nd plantar metatarsal exostosis. Sutures removed today. No signs of infection at this time. Fit with fracture boot. Protected weight-bearing with fracture boot. Continue with foam Mepilex for the callus incision with daily changes x3 days. May shower and wash. Patient indicated for custom shoes and inserts. We will try to help arrange that for. Follow up in 2 weeks for reassessment. (2) Diabetic neuropathy: Qualifiers: Diabetes mellitus type: type 2 Diabetes mellitus complication detail: with other neurological complication Qualified Code(s): E11.49 - Type 2 diabetes mellitus with other diabetic neurological complication Code(s): E11.40 - Type 2 diabetes mellitus with diabetic neuropathy, unspecified Status: Chronic Assessment and Plan: Medically necessary for custom prosthetic fit and fabrication. Patient condition requires custom fitting due to bone, joint, musculoskeletal deformity. Unable to fit with [id number] brace. Patient condition will be improved with bracing. Condition likely to deteriorate without custom support Indicated for custom Shoes with custom full-length inserts with offloading for the metatarsal head. Subjective Subjective Date/Time Seen: 06/16/20 09:05 Patient presents for follow-up [facility] 2.5 weeks status post right foot debridement. Daily dressing changes at long term with nursing assistance. Patient has keeping foot dry. No interim complaints. Exam Const: General: cooperative Nutritional Appearance: average body habitus Orientation/consciousness: patient oriented x3 Limitations: no limitations HENMT: Head: normal to inspection Ears: hearing grossly normal bilaterally General nose exam: Normal external nose present Face and sinus: normal facial exam Mouth: Yes moist mucous membranes Teeth and gingiva: dentition normal Eyes: General: appearance normal, both eyes and all related structures Pupils: Equal, round and reactive pupils present EOM: EOMs intact bilaterally Neck: Neck: normal visual inspection Chest: Chest palpation & inspection: normal inspection of the chest Resp: Effort & Inspection: normal respiratory effort and able to speak in complete sentences Cardio: Jugular venous distension: no JVD Neuro: General: patient oriented x3 Cranial nerves: Yes Equal, round and reactive pupils present Extrem: Right lower extremity: ankle and foot Other: RT foot dressing c/d/i. Toes with good cap refill . Dressing removed. Incisions well healed on the dorsum of the 1st webspace. Plantar ulcer well healed. Psych: Appearance: grossly normal Mental Status: mental status grossly normal Speech and movement: Normal speech and movement present Affect: normal affect Attitude: cooperative Thought process: Normal thought process present
[2020-06-16 15:30] VITALS: BMI 26.5
--- NOTE | 2020-06-27 09:04 | PM.PNORT ---
Progress Note: A&P Assessment and Plan (1) Foot abscess, right: Code(s): L02.611 - Cutaneous abscess of right foot Status: Acute Assessment and Plan: 4 weeks status post debridement right foot and excision of 2nd plantar metatarsal exostosis. Mild dehiscence incision. Plantar wound with devitalized tissue Requires debridement. No signs of infection at this time. Protected weight-bearing with fracture boot. Continue with foam Mepilex for the callus incision with daily and silver foam. May shower and wash. Patient indicated for custom shoes and inserts. We will try to help arrange that for. Follow up in 2 weeks for reassessment. (2) Diabetic neuropathy: Qualifiers: Diabetes mellitus type: type 2 Diabetes mellitus complication detail: with other neurological complication Qualified Code(s): E11.49 - Type 2 diabetes mellitus with other diabetic neurological complication Code(s): E11.40 - Type 2 diabetes mellitus with diabetic neuropathy, unspecified Status: Chronic Assessment and Plan: Medically necessary for custom prosthetic fit and fabrication. Patient condition requires custom fitting due to bone, joint, musculoskeletal deformity. Unable to fit with [id number] brace. Patient condition will be improved with bracing. Condition likely to deteriorate without custom support Indicated for custom Shoes with custom full-length inserts with offloading for the metatarsal head. Subjective Subjective Date/Time Seen: 06/27/20 09:04 F/U rt foot abscess. No new complaints. Post Op day: 4 weeks Principal diagnosis: RT foot abscess Exam Const: General: cooperative Nutritional Appearance: average body habitus Orientation/consciousness: patient oriented x3 Limitations: no limitations HENMT: Head: normal to inspection Ears: hearing grossly normal bilaterally General nose exam: Normal external nose present Face and sinus: normal facial exam Mouth: Yes moist mucous membranes Teeth and gingiva: dentition normal Eyes: General: appearance normal, both eyes and all related structures Pupils: Equal, round and reactive pupils present EOM: EOMs intact bilaterally Neck: Neck: normal visual inspection Chest: Chest palpation & inspection: normal inspection of the chest Resp: Effort & Inspection: normal respiratory effort and able to speak in complete sentences Cardio: Jugular venous distension: no JVD Neuro: General: patient oriented x3 Cranial nerves: Yes Equal, round and reactive pupils present Extrem: Right lower extremity: ankle and foot Other: RT foot dressing c/d/i. Toes with good cap refill . Dressing removed. Incision dorsum of the 1st webspace mild dehiscence 1X0.3X0.9cm. Plantar ulcer with surrounding callus 0.5X0.3X1.0cm. No drainage/ erythema. Psych: Appearance: grossly normal Mental Status: mental status grossly normal Speech and movement: Normal speech and movement present Affect: normal affect Attitude: cooperative Thought process: Normal thought process present Objective Data Meds/Results Medications: Active Medications Generic Name Dose Route Start Last Admin Trade Name Freq PRN Reason Stop Dose Admin Acetaminophen 325 mg 06/27/20 08:45 Acetaminophen 325 Mg Tablet PO ONCE NAHUM Amlodipine Besylate 5 mg 06/27/20 09:00 Amlodipine Besylate 5 Mg Tablet PO QAM [facility] Ampicillin 1,000 mg 06/27/20 09:00 Ampicillin Trihydrate 500 Mg Capsule PO Q12HR NAHUM Ascorbic Acid 500 mg 06/27/20 09:00 Ascorbic Acid 500 Mg Tablet PO BID [facility] Citalopram Hydrobromide 10 mg 06/27/20 09:00 Citalopram Hydrobromide 10 Mg Tablet PO DAILY [facility] Docusate Sodium 100 mg 06/27/20 09:00 Docusate Sodium 100 Mg Capsule PO BID [facility] Famotidine 20 mg 06/27/20 09:00 Famotidine 20 Mg Tablet PO DAILY [facility] Fluticasone Propionate 1 spray 06/27/20 08:44 Fluticasone Propionate 0.05% Na Spr 16 Gm Btl (*Bkc) NASAL
--- NOTE | 2020-06-27 09:17 | P.OP_ITS ---
Procedure Note - Detailed Date of procedure: 06/27/20 Pre-op diagnosis: diabetic ulcer right foot Post-op diagnosis: same Procedure performed: Excisional debridement rt DFU Description of procedure: Informed consent given. Operative extremity marked. Positioned supine. Time-out performed confirming the patient, site of the surgery and the plan. Right foot prepped draped usual sterile surgical fashion using alcohol prep solution. 10 blade knife used to excise the thick skin and callus from the plantar aspect of the foot exposing a 1.5 x 1 cm ulcer which communicated with the fascia. Skin, subcutaneous tissue and muscle were debride d. Infected material was excised and passed off. Bleeding controlled with pressure. Sterile dressing applied Anesthesia: none Surgeon: Ishmael Marie MD Estimated blood loss (mL): 1 Drains: No Packing: Yes Pathology: none sent Complications: None Condition: stable Disposition: no change
--- NOTE | 2020-07-11 08:30 | PM.IMHP ---
H&P: HPI History of Present Illness Date/Time: 07/11/20 08:30 Chief Complaint: Diabetic foot ulcer Narrative: 50-year-old male presents to the [facility] wound [facility] 6 weeks status post excisional debridement of right diabetic foot ulcer and debridement of abscess as well as excision exostosis. He has been performing daily dressing changes in his assisted living facility with use assistance of the nursing staff. He is still awaiting custom orthotics and depth shoes. He is waiting a sign off from the facilities primary care provider. He denies fever, chills, night sweats, nausea, vomiting or diarrhea. No new complaints today. Review of Systems Review of Systems: All systems reviewed & are unremarkable except as noted in HPI and below (HPI ) PMFSH Past Medical History Medical History Chronic diabetic ulcer of right foot determined by examination Chronic pancreatitis Depression with anxiety Diabetic neuropathy Environmental allergies Foot abscess, right History of alcoholism Hypertension Insulin dependent diabetes mellitus S/P ORIF (open reduction internal fixation) fracture Left elbow Surgical History Surgical History History of surgery on arm Left elbow Family History Family History Mother Breast cancer Father Cancer Social History Social History Social History: The patient tells me that he used to drink heavily and has a history of alcoholism. The patient is single does not have any children. He does not have a durable power banking attorney for healthcare. The patient is a full code. The patient resides at [facility]. The patient is disabled. The patient continues to smoke a half pack a cigarettes a day. Patient stated he smoked marijuana as a teenager but has not smoked since. He does not use any illicit drugs. The patient has no children. Smoking packs per day: 0.5 Smoking cigarettes per day: 10.0 Smoking status: Current every day smoker Tobacco type: cigarettes Alcohol intake: former Substance use: former Substance use type: marijuana Gender identity (if verbalized by the patient): Male Sexual Orientation (if Verbalized by the Patient): Straight or Heterosexual Spiritual care concerns: No Meds Home Medications and Allergies Home Medications Medication Instructions Recorded Confirmed Type Yossi ArredondoPen U-100 Insulin 30 unit SUBCUT QAM 05/28/20 06/27/20 History Creon 1 cap PO TID 05/28/20 06/27/20 History acetaminophen 325 mg PO ONCE 05/28/20 06/27/20 History ascorbic acid (vitamin C) [Vitamin 500 mg PO BID 05/28/20 06/27/20 History C] calcium carbonate [Tums E-X] 300 mg PO TID 05/28/20 06/27/20 History cetirizine 10 mg PO DAILY 05/28/20 06/27/20 History cholecalciferol (vitamin D3) 50 mcg PO DAILY 05/28/20 06/27/20 History [Vitamin D3] citalopram 10 mg PO DAILY 05/28/20 06/27/20 History docusate sodium 100 mg PO BID 05/28/20 06/27/20 History famotidine 20 mg PO DAILY 05/28/20 06/27/20 History fluticasone propionate 1 spray INTRANASAL Q12H PRN 05/28/20 06/27/20 History insulin lispro [Humalog KwikPen See Rx Instructions .ROUTE .COMPLEX 05/28/20 06/27/20 History Insulin] lactulose [Enulose] 20 g PO QID 05/28/20 06/27/20 History lisinopril 5 mg PO DAILY 05/28/20 06/27/20 History melatonin 10 mg PO HS PRN 05/28/20 06/27/20 History metoprolol tartrate 50 mg PO Q12H 05/28/20 06/27/20 History multivitamin [Daily-Precious] 1 tablet PO DAILY 05/28/20 06/27/20 History nitroglycerin [Nitrostat] 0.4 mg SUBLINGUAL Q5-15M PRN 05/28/20 06/27/20 History polyethylene glycol 3350 [Miralax] 17 g PO PRN 05/28/20 06/27/20 History sodium chloride 1,000 mg PO DAILY 05/28/20 06/27/20 History spironolactone 25 mg PO DAILY 05/28/20 06/27/20 History thiamine HCl (
--- NOTE | 2020-07-25 08:58 | PM.IMHP ---
H&P: HPI History of Present Illness Date/Time: 07/25/20 08:58 Chief Complaint: right diabetic foot abscess Narrative: 2 months status post debridement of right diabetic foot abscess. Patient presents to [facility] outpatient wound clinic for re-evaluation. No interim complaints. Denies fever chills. Walking with fracture boot. Review of Systems Constitutional: Constitutional: Reports no additional constitutional complaints, Denies excessive sweating, Denies fever(s) and Denies weight gain Eyes: Eyes: Reports no additional eye complaints and Denies change in vision ENT: Reports system reviewed and no additional complaints, except as documented and Reports Normal hearing present Cardiovascular: Cardiovascular: Denies chest pain, Denies diaphoresis, Denies leg ulcers and Denies dyspnea on exertion Respiratory: Respiratory: Reports no additional respiratory complaints, Denies cough and Denies dyspnea on exertion Gastrointestinal: Gastrointestinal: Reports no additional gastrointestinal complaints, Denies abdominal pain, Denies constipation, Denies nausea and Denies vomiting Genitourinary: Genitourinary: Reports no additional male genitourinary complaints, Denies hematuria and Denies urinary frequency Musculoskeletal: Musculoskeletal: Reports as per HPI Integumentary/Breasts: Skin/Breast: Reports as per HPI Neurologic: Reports Normal hearing present Endocrine: Endocrine: Reports no additional endocrine complaints, Denies change in body appearance, Denies excessive sweating, Denies polyphagia, Denies polydipsia and Denies polyuria Hematologic/Lymphatic: Hematologic/Lymphatic: Reports no additional hematologic/lymphatic complaints and Denies easy bleeding Allergic/Immunologic: Allergic/Immunologic: Reports no additional allergic/immunologic complaints, Denies throat swelling, Denies tongue swelling and Denies wheezing PMFSH Past Medical History Medical History Chronic diabetic ulcer of right foot determined by examination Chronic pancreatitis Depression with anxiety Diabetic neuropathy Environmental allergies Foot abscess, right History of alcoholism Hypertension Insulin dependent diabetes mellitus S/P ORIF (open reduction internal fixation) fracture Left elbow Surgical History Surgical History History of surgery on arm Left elbow Family History Family History Mother Breast cancer Father Cancer Social History Social History Social History: The patient tells me that he used to drink heavily and has a history of alcoholism. The patient is single does not have any children. He does not have a durable power sports attorney for healthcare. The patient is a full code. The patient resides at [facility]. The patient is disabled. The patient continues to smoke a half pack a cigarettes a day. Patient stated he smoked marijuana as a teenager but has not smoked since. He does not use any illicit drugs. The patient has no children. Smoking packs per day: 0.5 Smoking cigarettes per day: 10.0 Smoking status: Current every day smoker Tobacco type: cigarettes Alcohol intake: former Substance use: former Substance use type: marijuana Gender identity (if verbalized by the patient): Male Sexual Orientation (if Verbalized by the Patient): Straight or Heterosexual Spiritual care concerns: No Meds Home Medications and Allergies Home Medications Medication Instructions Recorded Confirmed Type Basaglar KwikPen U-100 Insulin 30 unit SUBCUT QAM 05/28/20 06/27/20 History Creon 1 cap PO TID 05/28/20 06/27/20 History acetaminophen 325 mg PO ONCE 05/28/20 06/27/20 History ascorbic acid (vitamin C) [Vitamin 500 mg PO BID 05/28/20 06/27/20 History C] calcium ca
--- NOTE | 2020-07-25 09:03 | W.PM.PROC2 ---
Procedure Note - Detailed Date of Procedure 07/25/20 Pre-op Diagnosis diabetic ulcer right foot Post-op Diagnosis same Procedure Performed Excisional debridement right diabetic foot ulcer skin, subcutaneous tissue 2 cm Surgeon SHO Whitney MD Anesthesia none Indications 50-year-old gentleman with diabetic neuropathy right foot. Right plantar foot ulcer indicated for debridement. Description of Procedure Correct site identified. Patient gave informed consent. Right foot prepped draped usual sterile surgical fashion is the alcohol prep solution. Fifteen blade knife used to sharply excise skin, subcutaneous tissue from the right plantar foot down to healthy viable tissue. No bleeding countered. Sterile dressing applied. Estimated Blood Loss 0 Drains No Packing No Pathology none sent Complications None Condition stable Disposition no change
== END 2020-09-14 23:59 | disposition home or self-care (01) ==
LOC: ANHWOC 07:27
PROVIDERS: Visit Provider Nurse Practitioner Family
DX: E11.621 Type 2 diabetes mellitus with foot ulcer (principal); L97.519 Non-pressure chronic ulcer of other part of right foot with unspecified severity; M86.9 Osteomyelitis, unspecified; L08.9 Local infection of the skin and subcutaneous tissue, unspecified
CPT/HCPCS: 11042; 99212; G0463; L2116

== ENCOUNTER 2021-10-22 17:28 | Emergency (ER) | payer OTHER, SELFPAY ==
--- NOTE | ~2021-10-22 | XR_ITS ---
EXAMINATION: XR chest 1V Exam Date/Time: 10/22/2021 18:25 CDT HISTORY: Syncope, hypoglycemia WEAKNESS Comparison: None available. RESULT: Lines, tubes, and devices: None. Lungs and pleura: Clear. Cardiomediastinal silhouette: Likely cardiomegaly even given portable technique. Other: No acute osseous or upper abdominal finding. IMPRESSION: No acute cardiopulmonary process. Reviewed, dictated and finalized at location [facility].
--- NOTE | ~2021-10-22 | CT_ITS ---
EXAMINATION: CT brain wo con DATE: 10/22/2021 18:22 INDICATION: fall . TECHNIQUE: Computed tomography (CT) of the head was performed without intravenous contrast. The mA wa s adjusted according to patient size. Iterative reconstruction technique was employed. The dose-lengt h product was 681.00 mGy-cm. COMPARISON: None FINDINGS: No acute intracranial hemorrhage or extra-axial fluid collection. No hydrocephalus, mass, or herniation. No acute ischemic infarct. Unremarkable dural venous sinus attenuation. No acute osseous abnormality. The aerated spaces are clear. Atherosclerotic intracranial calcification. IMPRESSION: No acute intracranial process. Reviewed, dictated and finalized at location K.
--- NOTE | ~2021-10-22 | CT_ITS ---
EXAMINATION: CT facial & cervical spine wo DATE: 10/22/2021 18:28 INDICATION: fall TECHNIQUE: Computed tomography (CT) of the maxillofacial region and cervical spine was performed with out intravenous contrast. Automated exposure control and iterative reconstruction technique were empl oyed. The dose-length product was 451.56 mGy-cm. COMPARISON: None FINDINGS: CERVICAL: Vertebral Body Alignment: Intact. Craniocervical and atlantoaxial alignment: Moderate degenerative change. Alignment intact. Osseous structures/fracture: No evidence of a lytic or blastic process in the visualized spine. No e vidence of acute fracture. Cervical soft tissues: The paraspinal soft tissues planes are maintained. Degenerative changes: Degenerative changes, without severe neural foraminal narrowing. Severe central canal narrowing at C6-7. FACE: Soft Tissues: No significant superficial soft tissue swelling. Facial bones: No acute fracture. No lytic or blastic process. Eyes: The globes are intact. The soft tissue planes of the orbits are maintained. Paranasal Sinuses: Near-complete opacification right maxillary sinus, likely bilateral retention cys t or polyp. Attention cyst or polyp in the left maxillary sinus. Foreign Bodies: No radiopaque foreign bodies. Other Findings: Periodontal disease. IMPRESSION: No acute fracture or traumatic malalignment in the cervical spine. No acute facial bone fracture. Reviewed, dictated and finalized at location K. IMPRESSION: No acute fracture or traumatic malalignment in the cervical spine. No acute fac ial bone fracture.
[2021-10-22 17:34] VITALS: BP 134/64; PULSE 47; RESP 20; TEMP 36.8; O2SAT 100
[2021-10-22 17:34] LABS: Glucose Point of Care 142 mg/dl (65-105)
--- NOTE | 2021-10-22 17:48 | ECG_ITS ---
Measurements Intervals [place] Rate: 45 P: FL: 0 QRS: -8 QRSD: 122 T: 37 QT: 554 QTc: 480 Interpretive Statements SINUS BRADYCARDIA WITH FIRST DEGREE AV BLOCK ANTEROSEPTAL INFARCT, AGE INDETERMINATE CONSIDER INFERIOR INFARCT, AGE INDETERMINATE BASELINE ARTIFACT- I, II, V1 ABNORMAL ECG NO PREVIOUS ECG AVAILABLE FOR COMPARISON Electronically Signed On 10-22-2021 20:02:06 CDT by Arnel Berman D.O.
[2021-10-22 18:09] LABS: Basophils Absolute Auto 0.1 K/mm3 (0.0-0.1); Basophils Percent Auto 0.7 % (0.2-1.2); Eosinophils Absolute Auto 0.4 K/mm3 (0-0.3); Eosinophils Percent Auto 3.9 % (0-4.4); Hematocrit 29.8 % (42.0-52.0); Hemoglobin 9.8 g/dL (14.0-18.0); Immature Granulocyte Absolute 0.04 K/mm3 (0.00-0.031); Immature Granulocyte Percent A 0.4 % (0-0.5); Lymphocytes Absolute Auto 0.47 K/mm3 (0.9-3.2); Lymphocytes Percent Auto 5.2 % (18.3-44.2); Mean Corpuscular HGB Conc 32.9 g/dl (32-36); Mean Corpuscular Hemoglobin 30.2 pg (26-34); Mean Corpuscular Volume 91.7 fl (80-100); Mean Platelet Volume 9.6 fl (7.4-10.4); Monocytes Absolute Auto 0.4 K/mm3 (0.1-0.6); Monocytes Percent Auto 3.9 % (2.6-8.5); Neutrophils Absolute Auto 7.8 K/mm3 (1.3-6.7); Neutrophils Percent Auto 85.9 % (45.5-73.1); Platelet Count Result 116 k/mm3 (150-375); Red Blood Count 3.25 M/mm3 (4.6-6.20); Red Cell Distribution Width 12.7 % (11.5-14.5)
[2021-10-22 18:25] LABS: Alanine Aminotransferase 15 U/L (6-50); Albumin Level 3.8 g/dL (3.5-5.1); Alkaline Phosphatase 79 U/L (38-126); Anion Gap 15 mmol/L (8-16); Aspartate Amino Transferase 23 U/L (17-59); Bilirubin,Total 0.6 mg/dL (0.2-1.3); Blood Urea Nitrogen 36 mg/dL (9-20); Calcium 8.1 mg/dL (8.4-10.2); Carbon Dioxide 23 mmol/L (22-30); Chloride 93 mmol/L (98-107); Estimated Glomerular Filt Rate 15; Glucose 163 mg/dL (65-110); Ovalocytes 1+ (NORMAL); Platelet Estimate Decreased (Adequate); Potassium 3.4 mmol/L (3.4-5.0); Sodium 131 mmol/L (137-145)
[2021-10-22 18:29] LABS: Troponin I 0.015 ng/mL (0.000-0.034)
--- NOTE | 2021-10-22 18:55 | ED.FALL ---
HPI - Fall General Chief Complaint: Fall Stated Complaint: bs40 supine on floor, possible seizure, 2 lacs Time Seen by Provider: 10/22/21 17:34 Source: EMS and RN notes reviewed Mode of arrival: EMS History of Present Illness HPI Narrative: Patient is 51 years old white male came from [facility] by ambulance because found laying down, facedown on the floor next to his bed prior to arrival. Blood glucose was 40 at that time, glucagon was given, blood glucose got up to 56, ambulance arrived, c-collar on, laceration, abrasion forehead, patient arrived to the ED with 250 cc of D10 IV infusion on Normally patient is awake, alert and oriented x4, walks without social services assistant or a walker. History of hemodialysis started 3 weeks ago last 1 was 3 days ago., Seizure MD complaint: fall Related Data Home Medications Medication Instructions Recorded Confirmed acetaminophen 325 mg tablet 325 mg PO ONCE 05/28/20 03/07/21 ascorbic acid (vitamin C) 500 mg 500 mg PO BID 05/28/20 03/07/21 tablet (Vitamin C) calcium carbonate 300 mg (750 mg) 300 mg PO TID 05/28/20 03/07/21 chewable tablet (Tums E-X) cetirizine 10 mg tablet 10 mg PO DAILY 05/28/20 03/07/21 cholecalciferol (vitamin D3) 50 50 mcg PO DAILY 05/28/20 03/07/21 mcg (2,000 unit) tablet (Vitamin D3) citalopram 10 mg tablet 10 mg PO DAILY 05/28/20 03/07/21 docusate sodium 100 mg capsule 100 mg PO BID 05/28/20 03/07/21 famotidine 20 mg tablet 20 mg PO DAILY 05/28/20 03/07/21 fluticasone propionate 50 1 spray intranasal Q12H PRN 05/28/20 03/07/21 mcg/actuation nasal Allergy Symptoms spray,suspension insulin glargine 100 unit/mL (3 30 unit subcut QAM 05/28/20 03/07/21 mL) subcutaneous pen (Basaglar KwikPen U-100 Insulin) insulin lispro 100 unit/mL See Rx Instructions .Route .COMPLEX 05/28/20 03/07/21 subcutaneous pen (Humalog KwikPen (U-100) Insulin) lactulose 10 gram/15 mL oral 20 g PO QID 05/28/20 03/07/21 solution (Enulose) [id number] 1 cap PO TID 05/28/20 03/07/21 36,000-114,000-180,000 unit capsule,delay rel (Creon) multivitamin (Daily-Precious tablet) 1 tablet PO DAILY 05/28/20 03/07/21 nitroglycerin 0.4 mg sublingual 0.4 mg sublingual Q5-15M PRN Pain 05/28/20 03/07/21 tablet (Nitrostat) polyethylene glycol 3350 17 gram 17 g PO PRN 05/28/20 03/07/21 oral powder packet (Miralax) sodium chloride 1,000 mg soluble 1,000 mg PO DAILY 05/28/20 03/07/21 tablet thiamine HCl (vitamin B1) 100 mg 100 mg PO DAILY 05/28/20 03/07/21 tablet trazodone 100 mg tablet 100 mg PO HS PRN Insomnia 05/28/20 03/07/21 aspirin 81 mg tablet,delayed 81 mg PO DAILY 03/07/21 03/07/21 release carvedilol 25 mg tablet 25 mg PO Q12H 03/07/21 03/07/21 doxazosin 2 mg tablet 2 mg PO BID 03/07/21 03/07/21 hydralazine 100 mg tablet 100 mg PO TID 03/07/21 03/07/21 isosorbide dinitrate 20 mg tablet 20 mg PO TID 03/07/21 03/07/21 Allergies Allergy/AdvReac Type Severity Reaction Status Date / Time No Known Allergies Allergy Verified 03/07/21 13:39 Review of Systems Review of Systems: All systems reviewed & are unremarkable except as noted in HPI and below PMFSH Past Medical History Medical History Chronic diabetic ulcer of right foot determined by examination Chronic pancreatitis Depression with anxiety Diabetic neuropathy Environmental allergies Foot abscess, right History of alcoholism Hypertension Insulin dependent diabetes mellitus Surgical History Surgical History History of surgery on arm Left elbow S/P ORIF (open reduction internal fixation) fracture Left elbow Family History Family History Mother Breast cancer Father Cancer Social History Social History Social History: The patient tells me that he used to drink heavily and has a history
[2021-10-22 19:34] LABS: Appearance Urine Clear (Clear); Bilirubin Urine Negative (Negative); Blood Urine Negative (Negative); Color Urine Yellow (Yellow); Glucose Urine UA Negative (Negative); Ketones Urine Negative (Negative); Leukocyte Esterase Ur Negative LEU/UL (Negative); Nitrate Urine Negative (Negative); Protein Urine 3+ mg/dL (Negative); Urobilinogen Urine 0.2 mg/dL (<2.0)
[2021-10-22 19:43] VITALS: BP 132/66; PULSE 50; RESP 18; O2SAT 99
[2021-10-22 19:52] LABS: Add Urine Microscopic? YES
[2021-10-22 19:53] LABS: RBC Urine 0-2 /hpf (0-2); WBC Urine 0-3 /hpf
[2021-10-22 19:54] LABS: Squamous Epithelial Cell Urine Rare /hpf (Few)
[2021-10-22] MEDS: TETANUS,DIPHTHERIA,AC PERTUSSIS ADULT (0.5 ML) BOOSTRIX IM (21:03)
[2021-10-22 21:53] VITALS: BP 140/61; PULSE 48; RESP 18; O2SAT 99
--- NOTE | 2021-10-22 22:29 | PC.NURSE ---
report called to carey Mclain at [facility]
== END 2021-10-22 22:55 ==
PROVIDERS: Emergency Provider Emergency Medicine
DX: S00.81XA Abrasion of other part of head, initial encounter (principal); E11.649 Type 2 diabetes mellitus with hypoglycemia without coma; Z23 Encounter for immunization; E11.621 Type 2 diabetes mellitus with foot ulcer; L97.519 Non-pressure chronic ulcer of other part of right foot with unspecified severity; E11.40 Type 2 diabetes mellitus with diabetic neuropathy, unspecified; K86.1 Other chronic pancreatitis; I10 Essential (primary) hypertension; Z99.2 Dependence on renal dialysis; F10.21 Alcohol dependence, in remission; F17.210 Nicotine dependence, cigarettes, uncomplicated; Z79.4 Long term (current) use of insulin; R00.1 Bradycardia, unspecified; R94.31 Abnormal electrocardiogram [ECG] [EKG]; W19.XXXA Unspecified fall, initial encounter
CPT/HCPCS: 36415; 51701; 70450; 70486; 71045; 72125; 80053; 81001; 82948; 84484; 85025; 90471; 90715; 93005; 99284

== ENCOUNTER 2021-10-28 08:26 | Emergency (ER) | payer OTHER, SELFPAY ==
[2021-10-28 08:25] VITALS: BP 170/65; PULSE 53; RESP 18; TEMP 35.6; O2SAT 97
[2021-10-28 08:48] LABS: Glucose Point of Care 91 mg/dl (65-105)
[2021-10-28 09:04] VITALS: BP 150/59; PULSE 51; RESP 18; TEMP 34; O2SAT 99
[2021-10-28 09:46] VITALS: BP 135/52; PULSE 51; RESP 18; O2SAT 100
--- NOTE | 2021-10-28 10:34 | ED.GENADULT ---
HPI - General Adult General Chief complaint: Recheck/Abnormal Lab/Rx Stated complaint: hypoglycemic Time Seen by Provider: 10/28/21 08:26 Source: EMS and RN notes reviewed Mode of arrival: EMS Limitations: no limitations History of Present Illness HPI narrative: 51 years old white male [facility], unresponsive, blood glucose of 34, 1 mg of glucagon was getting, EMT arrived, blood glucose was 81, on arrival to the ED blood glucose was 91. Patient feels okay, asymptomatic, aregular diet ordered. Patient on insulin. He denies any fever, chills, nausea, vomiting, chest pain, abdominal pain or urinary symptoms. Related Data Home Medications Medication Instructions Recorded Confirmed acetaminophen 325 mg tablet 325 mg PO ONCE 05/28/20 03/07/21 ascorbic acid (vitamin C) 500 mg 500 mg PO BID 05/28/20 03/07/21 tablet (Vitamin C) calcium carbonate 300 mg (750 mg) 300 mg PO TID 05/28/20 03/07/21 chewable tablet (Tums E-X) cetirizine 10 mg tablet 10 mg PO DAILY 05/28/20 03/07/21 cholecalciferol (vitamin D3) 50 50 mcg PO DAILY 05/28/20 03/07/21 mcg (2,000 unit) tablet (Vitamin D3) citalopram 10 mg tablet 10 mg PO DAILY 05/28/20 03/07/21 docusate sodium 100 mg capsule 100 mg PO BID 05/28/20 03/07/21 famotidine 20 mg tablet 20 mg PO DAILY 05/28/20 03/07/21 fluticasone propionate 50 1 spray intranasal Q12H PRN 05/28/20 03/07/21 mcg/actuation nasal Allergy Symptoms spray,suspension insulin glargine 100 unit/mL (3 30 unit subcut QAM 05/28/20 03/07/21 mL) subcutaneous pen (Basaglar KwikPen U-100 Insulin) insulin lispro 100 unit/mL See Rx Instructions .Route .COMPLEX 05/28/20 03/07/21 subcutaneous pen (Humalog KwikPen (U-100) Insulin) lactulose 10 gram/15 mL oral 20 g PO QID 05/28/20 03/07/21 solution (Enulose) [id number] 1 cap PO TID 05/28/20 03/07/21 36,000-114,000-180,000 unit capsule,delay rel (Creon) multivitamin (Daily-Precious tablet) 1 tablet PO DAILY 05/28/20 03/07/21 nitroglycerin 0.4 mg sublingual 0.4 mg sublingual Q5-15M PRN Pain 05/28/20 03/07/21 tablet (Nitrostat) polyethylene glycol 3350 17 gram 17 g PO PRN 05/28/20 03/07/21 oral powder packet (Miralax) sodium chloride 1,000 mg soluble 1,000 mg PO DAILY 05/28/20 03/07/21 tablet thiamine HCl (vitamin B1) 100 mg 100 mg PO DAILY 05/28/20 03/07/21 tablet trazodone 100 mg tablet 100 mg PO HS PRN Insomnia 05/28/20 03/07/21 aspirin 81 mg tablet,delayed 81 mg PO DAILY 03/07/21 03/07/21 release carvedilol 25 mg tablet 25 mg PO Q12H 03/07/21 03/07/21 doxazosin 2 mg tablet 2 mg PO BID 03/07/21 03/07/21 hydralazine 100 mg tablet 100 mg PO TID 03/07/21 03/07/21 isosorbide dinitrate 20 mg tablet 20 mg PO TID 03/07/21 03/07/21 Allergies Allergy/AdvReac Type Severity Reaction Status Date / Time No Known Allergies Allergy Verified 03/07/21 13:39 Review of Systems Review of Systems: All systems reviewed & are unremarkable except as noted in HPI and below PMFSH Past Medical History Medical History Chronic diabetic ulcer of right foot determined by examination Chronic pancreatitis Depression with anxiety Diabetic neuropathy Environmental allergies Foot abscess, right History of alcoholism Hypertension Insulin dependent diabetes mellitus Surgical History Surgical History History of surgery on arm Left elbow S/P ORIF (open reduction internal fixation) fracture Left elbow Family History Family History Mother Breast cancer Father Cancer Social History Social History Social History: The patient tells me that he used to drink heavily and has a history of alcoholism. The patient is single does not have any children. He does not have a durable power bag machine tender for healthcare. The patient is a f
[2021-10-28 12:01] LABS: Glucose Point of Care 192 mg/dl (65-105)
[2021-10-28 12:02] VITALS: BP 153/76; PULSE 53; RESP 16; TEMP 36.4; O2SAT 98
== END 2021-10-28 12:05 ==
PROVIDERS: Emergency Provider Emergency Medicine
DX: E11.649 Type 2 diabetes mellitus with hypoglycemia without coma (principal); E11.40 Type 2 diabetes mellitus with diabetic neuropathy, unspecified; K86.1 Other chronic pancreatitis; F41.8 Other specified anxiety disorders; I10 Essential (primary) hypertension; F10.21 Alcohol dependence, in remission; F17.210 Nicotine dependence, cigarettes, uncomplicated; Z79.4 Long term (current) use of insulin; Z79.82 Long term (current) use of aspirin
CPT/HCPCS: 82948; 99283